=== PATIENT | male | born 1950 | race Caucasian/White ===

== ENCOUNTER 2020-08-23 10:00 | Outpatient (REF) | payer MEDICARE, OTHER, SELFPAY ==
[2020-08-23 13:29] LABS: MANUAL DIFF FLAG NO
[2020-08-23 13:37] LABS: Basophils Absolute Auto 0.1 X10*3/uL (0.0-0.2); Eosinophils Absolute Auto 0.5 X10*3/uL (0.0-0.4); Eosinophils Percent Auto 8.2 % (0-4); Hematocrit 40.4 % (42-52); Hemoglobin 12.6 g/dl (14.0-18.0); Imm Gran Abs Auto 0.02 X10*3/uL (0.00-0.03); Imm Gran Pct Auto 0.3 % (0.0-0.4); Lymphocytes Absolute Auto 0.9 X10*3/uL (1.2-4.9); Mean Corpuscular HGB Conc 31.2 g/dl (31.0-36.0); Mean Corpuscular Hemoglobin 26.8 pg (27.0-33.0); Mean Platelet Volume 11.3 fL (9.4-12.4); Monocytes Absolute Auto 0.6 X10*3/uL (0.1-1.2); Monocytes Percent Auto 8.8 % (2-11); Neutrophils Absolute Auto 4.2 X10*3/uL (2.0-8.3); Neutrophils Percent Auto 66.7 % (45-73); Platelet Count 259 X10*3/uL (160-400); Red Cell Distribution Width 15.3 % (11.0-16.0); White Blood Count 6.2 X10*3/uL (4.8-10.8)
[2020-08-23 14:41] LABS: Alanine Aminotransferase 28 U/L (0-40); Albumin Level 4.3 g/dL (3.5-5.0); Alkaline Phosphatase 74 U/L (39-117); Anion Gap 13 (12-20); Aspartate Amino Transferase 30 U/L (5-37); Bilirubin Total 0.6 mg/dL (0.0-1.0); Blood Urea Nitrogen 23 mg/dL (9-16); Calcium 9.1 mg/dL (8.4-10.2); Carbon Dioxide 28 mmol/L (22-29); Chloride 102 mmol/L (96-108); Cholesterol 167 mg/dL; Estimated Glomerular Filt Rate > 60; Glucose Fasting 114 mg/dL (60-99); HDL Cholesterol 33 mg/dL; LDL Cholesterol Calculated 115 mg/dl; Potassium 4.4 mmol/l (3.3-5.1); Sodium 139 mmol/L (135-145); Total Protein 7.2 g/dL (6.5-8.0); Triglycerides 99 mg/dL
== END 2020-08-23 10:01 | disposition home or self-care (01) ==
LOC: HO.WFDLDS 10:00
PROVIDERS: Visit Provider Internal Medicine Medical Oncology
DX: I10 Essential (primary) hypertension (principal); E11.9 Type 2 diabetes mellitus without complications; C43.9 Malignant melanoma of skin, unspecified
CPT/HCPCS: 36415; 80053; 80061; 85025

== ENCOUNTER 2020-11-28 09:51 | Outpatient (REF) | payer MEDICARE, OTHER, SELFPAY ==
[2020-11-28 10:22] LABS: MANUAL DIFF FLAG NO
[2020-11-28 10:29] LABS: Basophils Percent Auto 0.9 % (0-2); Eosinophils Absolute Auto 0.3 X10*3/uL (0.0-0.4); Eosinophils Percent Auto 5.8 % (0-4); Hemoglobin 11.8 g/dl (14.0-18.0); Imm Gran Abs Auto 0.02 X10*3/uL (0.00-0.03); Imm Gran Pct Auto 0.4 % (0.0-0.4); Lymphocytes Absolute Auto 0.8 X10*3/uL (1.2-4.9); Lymphocytes Percent Auto 16.5 % (20-40); Mean Corpuscular HGB Conc 31.1 g/dl (31.0-36.0); Mean Corpuscular Hemoglobin 26.9 pg (27.0-33.0); Mean Corpuscular Volume 86.8 fL (80-98); Mean Platelet Volume 10.8 fL (9.4-12.4); Monocytes Absolute Auto 0.4 X10*3/uL (0.1-1.2); Neutrophils Absolute Auto 3.1 X10*3/uL (2.0-8.3); Neutrophils Percent Auto 67.4 % (45-73); Platelet Count 256 X10*3/uL (160-400); Red Blood Count 4.38 X10*6/uL (4.60-5.80); Red Cell Distribution Width 14.7 % (11.0-16.0); White Blood Count 4.7 X10*3/uL (4.8-10.8)
[2020-11-28 10:39] LABS: Estimated Average Glucose 148 mg/dL; Hemoglobin A1c % 6.8 %
[2020-11-28 11:17] LABS: Alanine Aminotransferase 29 U/L (0-40); Albumin Level 4.2 g/dL (3.5-5.0); Alkaline Phosphatase 79 U/L (39-117); Anion Gap 13 (12-20); Aspartate Amino Transferase 29 U/L (5-37); Bilirubin Total 0.5 mg/dL (0.0-1.0); Blood Urea Nitrogen 22 mg/dL (9-16); Calcium 9.6 mg/dL (8.4-10.2); Carbon Dioxide 30 mmol/L (22-29); Chloride 103 mmol/L (96-108); Cholesterol 176 mg/dL; Estimated Glomerular Filt Rate > 60; Glucose Random 123 mg/dL (60-115); HDL Cholesterol 37 mg/dL; LDL Cholesterol Calculated 117 mg/dl; Potassium 4.7 mmol/l (3.3-5.1); Sodium 141 mmol/L (135-145); Total Protein 7.1 g/dL (6.5-8.0); Triglycerides 111 mg/dL
[2020-11-28 11:39] LABS: Prostate Specific Antigen 0.21 ng/mL (<0.05-4.0)
== END 2020-11-28 09:52 | disposition home or self-care (01) ==
LOC: HO.LAB 09:51
PROVIDERS: PCP Internal Medicine Medical Oncology; Visit Provider Internal Medicine Medical Oncology
DX: I10 Essential (primary) hypertension (principal); N40.1 Benign prostatic hyperplasia with lower urinary tract symptoms; E11.9 Type 2 diabetes mellitus without complications; I25.10 Atherosclerotic heart disease of native coronary artery without angina pectoris; E78.2 Mixed hyperlipidemia; Z12.5 Encounter for screening for malignant neoplasm of prostate
CPT/HCPCS: 36415; 80053; 80061; 83036; 84153; 85025

== ENCOUNTER 2021-01-24 07:54 | Outpatient (REF) | payer MEDICARE, OTHER, SELFPAY | END 2021-01-24 07:55 | disposition home or self-care (01) | LOC: HO.LAB 07:54 | PROVIDERS: Internal Medicine; Visit Provider Internal Medicine Medical Oncology | DX: Z20.822 Contact with and (suspected) exposure to COVID-19 (principal) | CPT/HCPCS: 36415; C9803; U0003; U0005 ==

== ENCOUNTER 2021-08-14 10:29 | Outpatient (REF) | payer MEDICARE, OTHER, SELFPAY ==
[2021-08-14 11:06] LABS: MANUAL DIFF FLAG NO
[2021-08-14 11:44] LABS: Basophils Absolute Auto 0.1 X10*3/uL (0.0-0.2); Basophils Percent Auto 0.8 % (0-2); Eosinophils Absolute Auto 0.3 X10*3/uL (0.0-0.4); Eosinophils Percent Auto 4.1 % (0-4); Hematocrit 35.6 % (42-52); Hemoglobin 11.1 g/dl (14.0-18.0); Imm Gran Abs Auto 0.03 X10*3/uL (0.00-0.03); Imm Gran Pct Auto 0.5 % (0.0-0.4); Lymphocytes Absolute Auto 0.8 X10*3/uL (1.2-4.9); Lymphocytes Percent Auto 12.4 % (20-40); Mean Corpuscular HGB Conc 31.2 g/dl (31.0-36.0); Mean Corpuscular Hemoglobin 26.2 pg (27.0-33.0); Mean Corpuscular Volume 84.2 fL (80-98); Monocytes Absolute Auto 0.5 X10*3/uL (0.1-1.2); Monocytes Percent Auto 7.8 % (2-11); Neutrophils Absolute Auto 4.5 X10*3/uL (2.0-8.3); Neutrophils Percent Auto 74.4 % (45-73); Platelet Count 268 X10*3/uL (160-400); Red Blood Count 4.23 X10*6/uL (4.60-5.80); Red Cell Distribution Width 15.6 % (11.0-16.0)
[2021-08-14 12:02] LABS: Estimated Average Glucose 157 mg/dL; Hemoglobin A1c % 7.1 %
[2021-08-14 12:07] LABS: Alanine Aminotransferase 39 U/L (0-40); Alkaline Phosphatase 68 U/L (39-117); Anion Gap 14 (12-20); Aspartate Amino Transferase 39 U/L (5-37); Bilirubin Total 0.8 mg/dL (0.0-1.0); Blood Urea Nitrogen 28 mg/dL (9-16); Calcium 9.4 mg/dL (8.4-10.2); Carbon Dioxide 25 mmol/L (22-29); Chloride 104 mmol/L (96-108); Cholesterol 164 mg/dL; Estimated Glomerular Filt Rate 53; Glucose Fasting 139 mg/dL (60-99); HDL Cholesterol 37 mg/dL; LDL Cholesterol Calculated 107 mg/dl; Potassium 4.4 mmol/L (3.3-5.1); Sodium 139 mmol/L (135-145); Total Protein 6.9 g/dL (6.5-8.0); Triglycerides 104 mg/dL
[2021-08-14 12:12] LABS: Creatinine Urine 67.08 mg/dL
== END 2021-08-14 10:30 | disposition home or self-care (01) ==
LOC: HO.LAB 10:29
PROVIDERS: PCP Internal Medicine Medical Oncology; Visit Provider Internal Medicine Medical Oncology
DX: I10 Essential (primary) hypertension (principal); E78.2 Mixed hyperlipidemia; E11.9 Type 2 diabetes mellitus without complications; I48.20 Chronic atrial fibrillation, unspecified; N40.1 Benign prostatic hyperplasia with lower urinary tract symptoms; Z12.5 Encounter for screening for malignant neoplasm of prostate
CPT/HCPCS: 36415; 80053; 80061; 82043; 83036; 84153; 85025

== ENCOUNTER 2021-12-25 11:23 | Outpatient (REF) | payer MEDICARE, OTHER, SELFPAY ==
--- NOTE | ~2021-12-25 | XR_ITS ---
EXAMINATION: XR ELBOW, LEFT CLINICAL INFORMATION: Left elbow pain. COMPARISON: None TECHNIQUE: AP, lateral, and oblique views of the left elbow. FINDINGS: There is chondrocalcinosis. There is subchondral cystic change in the capitellum. There are marginal osteophytes about the radiocapitellar joint. There is a joint effusion. The surrounding bone is normal. Arterial calcification noted. XR/XR elbow LT 2V IMPRESSION: Chondrocalcinosis and osteoarthritis with a joint effusion. 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
== END 2021-12-25 11:24 | disposition home or self-care (01) ==
LOC: HO.XRAY 11:23
PROVIDERS: PCP Internal Medicine Medical Oncology; Visit Provider Internal Medicine Medical Oncology
DX: M25.522 Pain in left elbow (principal)
CPT/HCPCS: 73070

== ENCOUNTER 2022-08-15 09:22 | Outpatient (REF) | payer MEDICARE, OTHER, SELFPAY ==
[2022-08-15 09:46] LABS: MANUAL DIFF FLAG NO
[2022-08-15 10:19] LABS: Basophils Absolute Auto 0.1 X10*3/uL (0.0-0.2); Basophils Percent Auto 1.6 % (0-2); Eosinophils Absolute Auto 0.2 X10*3/uL (0.0-0.4); Eosinophils Percent Auto 3.7 % (0-4); Hematocrit 39.1 % (42.0-52.0); Hemoglobin 12.7 g/dl (14.0-18.0); Imm Gran Abs Auto 0.03 X10*3/uL (0.00-0.03); Imm Gran Pct Auto 0.6 % (0.0-0.4); Lymphocytes Absolute Auto 1.2 X10*3/uL (1.2-4.9); Lymphocytes Percent Auto 22.6 % (20-40); Mean Corpuscular HGB Conc 32.5 g/dl (31.0-36.0); Mean Corpuscular Volume 86.3 fL (80.0-98.0); Mean Platelet Volume 10.9 fL (9.4-12.4); Monocytes Absolute Auto 0.5 X10*3/uL (0.1-1.2); Monocytes Percent Auto 8.8 % (2-11); Neutrophils Absolute Auto 3.2 x10*3/uL (2.0-8.3); Neutrophils Percent Auto 62.7 % (45-73); Platelet Count 314 X10*3/uL (160-400); Red Blood Count 4.53 X10*6/uL (4.60-5.80); Red Cell Distribution Width 14.2 % (11.0-16.0); White Blood Count 5.1 X10*3/uL (4.8-10.8)
[2022-08-15 10:29] LABS: Estimated Average Glucose 146 mg/dL; Hemoglobin A1c % 6.7 %
[2022-08-15 10:40] LABS: Alanine Aminotransferase 29 U/L (0-40); Albumin Level 4.4 g/dL (3.5-5.0); Alkaline Phosphatase 75 U/L (39-117); Anion Gap 19 (12-20); Aspartate Amino Transferase 35 U/L (5-37); Bilirubin Total 0.3 mg/dL (0.0-1.0); Blood Urea Nitrogen 40 mg/dL (9-16); Calcium 9.7 mg/dL (8.4-10.2); Carbon Dioxide 26 mmol/L (22-29); Chloride 97 mmol/L (96-108); Cholesterol 184 mg/dL; Estimated Glomerular Filt Rate 47; Glucose Random 100 mg/dL (60-115); HDL Cholesterol 33 mg/dL; LDL Cholesterol Calculated 125 mg/dl; Potassium 4.1 mmol/L (3.3-5.1); Sodium 138 mmol/L (135-145); Total Protein 7.6 g/dL (6.5-8.0); Triglycerides 132 mg/dL
[2022-08-15 11:05] LABS: Prostate Specific Antigen 0.14 ng/mL (<0.05-4.0)
[2022-08-15 11:37] LABS: Creatinine Urine 46.57 mg/dL
== END 2022-08-15 09:23 | disposition home or self-care (01) ==
LOC: HO.LAB 09:22
PROVIDERS: Visit Provider Internal Medicine Medical Oncology
DX: E11.9 Type 2 diabetes mellitus without complications (principal); I10 Essential (primary) hypertension; N40.1 Benign prostatic hyperplasia with lower urinary tract symptoms; Z12.5 Encounter for screening for malignant neoplasm of prostate
CPT/HCPCS: 36415; 80053; 80061; 82043; 83036; 84153; 85025

== ENCOUNTER 2022-11-15 08:36 | Outpatient (REF) | payer MEDICARE, OTHER, SELFPAY ==
[2022-11-15 08:52] LABS: MANUAL DIFF FLAG NO
[2022-11-15 09:29] LABS: Basophils Absolute Auto 0.1 X10*3/uL (0.0-0.2); Eosinophils Absolute Auto 0.3 X10*3/uL (0.0-0.4); Eosinophils Percent Auto 5.4 % (0-4); Hematocrit 34.3 % (42.0-52.0); Imm Gran Abs Auto 0.01 X10*3/uL (0.00-0.03); Imm Gran Pct Auto 0.2 % (0.0-0.4); Lymphocytes Absolute Auto 0.9 X10*3/uL (1.2-4.9); Lymphocytes Percent Auto 16.4 % (20-40); Mean Corpuscular HGB Conc 32.1 g/dl (31.0-36.0); Mean Corpuscular Hemoglobin 27.7 pg (27.0-33.0); Mean Corpuscular Volume 86.4 fL (80.0-98.0); Mean Platelet Volume 10.7 fL (9.4-12.4); Monocytes Absolute Auto 0.5 X10*3/uL (0.1-1.2); Monocytes Percent Auto 9.5 % (2-11); Neutrophils Absolute Auto 3.5 x10*3/uL (2.0-8.3); Neutrophils Percent Auto 67.5 % (45-73); Platelet Count 285 X10*3/uL (160-400); Red Blood Count 3.97 X10*6/uL (4.60-5.80); Red Cell Distribution Width 14.1 % (11.0-16.0); White Blood Count 5.2 X10*3/uL (4.8-10.8)
[2022-11-15 09:39] LABS: Estimated Average Glucose 143 mg/dL; Hemoglobin A1c % 6.6 %
[2022-11-15 10:06] LABS: Alanine Aminotransferase 23 U/L (0-40); Albumin Level 4.2 g/dL (3.5-5.0); Alkaline Phosphatase 73 U/L (39-117); Anion Gap 14 (12-20); Aspartate Amino Transferase 31 U/L (5-37); Bilirubin Total 0.4 mg/dL (0.0-1.0); Blood Urea Nitrogen 36 mg/dL (9-16); Calcium 9.5 mg/dL (8.4-10.2); Carbon Dioxide 26 mmol/L (22-29); Chloride 103 mmol/L (96-108); Cholesterol 175 mg/dL; Estimated Glomerular Filt Rate 41; Glucose Fasting 119 mg/dL (60-99); HDL Cholesterol 31 mg/dL; LDL Cholesterol Calculated 118 mg/dl; Potassium 4.2 mmol/L (3.3-5.1); Sodium 139 mmol/L (135-145); Total Protein 7.4 g/dL (6.5-8.0); Triglycerides 132 mg/dL
[2022-11-15 12:22] LABS: Microalbum/Creatinine Ratio Ur 14.1 ug/mg cr
== END 2022-11-15 08:37 | disposition home or self-care (01) ==
LOC: HO.LAB 08:36
PROVIDERS: PCP Internal Medicine Medical Oncology; Visit Provider Internal Medicine Medical Oncology
DX: E11.9 Type 2 diabetes mellitus without complications (principal); I10 Essential (primary) hypertension; I48.20 Chronic atrial fibrillation, unspecified; E78.2 Mixed hyperlipidemia
CPT/HCPCS: 36415; 80053; 80061; 82043; 83036; 85025

== ENCOUNTER 2022-12-10 15:06 | Outpatient (REF) | payer MEDICARE, OTHER, SELFPAY ==
--- NOTE | ~2022-12-10 | US_ITS ---
EXAMINATION: US RETROPERITONEAL COMPLETE (RENAL) CLINICAL INFORMATION: Abnormal finding of blood chemistry. Hydronephrosis. Elevated BUN. COMPARISON: CT abdomen and pelvis 06/03/2017. Nuclear medicine renal scan 02/20/2017. TECHNIQUE: Real-time imaging of the kidneys and bladder. FINDINGS: RIGHT KIDNEY: 14.1 x 6.7 x 8.9 cm (SAG x AP x TRV). The kidney is normal in size, contour, and echogenicity. Renal cortical thickness is normal. No renal calculi or focal parenchymal lesions. Moderate to severe hydroureteronephrosis, the visualized proximal ureter measures up to 1.6 cm in diameter. LEFT KIDNEY: 15.0 x 6.2 x 7.9 cm (SAG x AP x TRV). The kidney is normal in size, contour, and echogenicity. Renal cortical thickness is normal. No renal calculi or focal parenchymal lesions. Moderate to severe hydroureteronephrosis, the visualized proximal ureter measures 2.5 cm in diameter. BLADDER: Well distended with thickened and trabeculated wall. Bilateral ureteral jets are demonstrated. Prevoid bladder volume is 1075.7 mL. Postvoid bladder volume is 1041.8 mL. Prostate gland not visualized. US/US retroperitoneal comp IMPRESSION: Chronic moderate to severe bilateral hydroureteronephrosis. Remote CT abdominopelvic images and nuclear medicine renal functional studies are noted from 2017. Recommend interval correlation with new functional imaging to assess residual renal function. Bilateral ureteral jets are noted. Trabeculated thickened urinary bladder, also noted on CT from 2017, nonspecific could be associated with neurogenic bladder. If indicated, consider correlation with urinalysis.
[2022-12-10 16:38] LABS: Blood Urea Nitrogen 34 mg/dL (9-16); Estimated Glomerular Filt Rate 37
== END 2022-12-10 15:07 | disposition home or self-care (01) ==
LOC: HO.US 15:06
PROVIDERS: PCP Internal Medicine Medical Oncology; Visit Provider Internal Medicine Medical Oncology
DX: E11.9 Type 2 diabetes mellitus without complications (principal); N18.30 Chronic kidney disease, stage 3 unspecified; R79.9 Abnormal finding of blood chemistry, unspecified
CPT/HCPCS: 36415; 76770; 82565; 84520

== ENCOUNTER 2023-03-06 09:36 | Outpatient (REF) | payer MEDICARE, OTHER, SELFPAY ==
[2023-03-06 09:56] LABS: MANUAL DIFF FLAG NO
[2023-03-06 09:59] LABS: Basophils Absolute Auto 0.1 X10*3/uL (0.0-0.2); Eosinophils Absolute Auto 0.3 X10*3/uL (0.0-0.4); Eosinophils Percent Auto 4.7 % (0-4); Hematocrit 36.5 % (42.0-52.0); Hemoglobin 11.5 g/dl (14.0-18.0); Imm Gran Abs Auto 0.02 X10*3/uL (0.00-0.03); Imm Gran Pct Auto 0.3 % (0.0-0.4); Lymphocytes Absolute Auto 0.8 X10*3/uL (1.2-4.9); Lymphocytes Percent Auto 13.4 % (20-40); Mean Corpuscular HGB Conc 31.5 g/dl (31.0-36.0); Mean Corpuscular Hemoglobin 26.9 pg (27.0-33.0); Mean Corpuscular Volume 85.5 fL (80.0-98.0); Monocytes Absolute Auto 0.5 X10*3/uL (0.1-1.2); Monocytes Percent Auto 8.4 % (2-11); Neutrophils Absolute Auto 4.1 x10*3/uL (2.0-8.3); Neutrophils Percent Auto 72.2 % (45-73); Platelet Count 264 X10*3/uL (160-400); Red Blood Count 4.27 X10*6/uL (4.60-5.80); Red Cell Distribution Width 14.5 % (11.0-16.0); White Blood Count 5.7 X10*3/uL (4.8-10.8)
[2023-03-06 11:26] LABS: Alanine Aminotransferase 17 U/L (0-40); Albumin Level 4.2 g/dL (3.5-5.0); Alkaline Phosphatase 82 U/L (39-117); Anion Gap 16 (12-20); Aspartate Amino Transferase 21 U/L (5-37); Bilirubin Total 0.6 mg/dL (0.0-1.0); Blood Urea Nitrogen 27 mg/dL (9-16); Carbon Dioxide 25 mmol/L (22-29); Chloride 103 mmol/L (96-108); Cholesterol 186 mg/dL; Estimated Glomerular Filt Rate 42; Glucose Random 121 mg/dL (60-115); HDL Cholesterol 32 mg/dL; LDL Cholesterol Calculated 132 mg/dl; Magnesium 1.7 mg/dL (1.6-2.6); Potassium 4.9 mmol/L (3.3-5.1); Sodium 139 mmol/L (135-145); Total Protein 7.1 g/dL (6.5-8.0); Triglycerides 110 mg/dL
[2023-03-06 11:28] LABS: Prostate Specific Antigen 0.24 ng/mL (<0.05-4.0)
== END 2023-03-06 09:37 | disposition home or self-care (01) ==
LOC: HO.LAB 09:36
PROVIDERS: PCP Internal Medicine Medical Oncology; Visit Provider Internal Medicine Medical Oncology
DX: Z12.5 Encounter for screening for malignant neoplasm of prostate (principal); I25.10 Atherosclerotic heart disease of native coronary artery without angina pectoris; R79.0 Abnormal level of blood mineral; E11.9 Type 2 diabetes mellitus without complications; N40.1 Benign prostatic hyperplasia with lower urinary tract symptoms; E78.2 Mixed hyperlipidemia
CPT/HCPCS: 36415; 80053; 80061; 83735; 84153; 85025

== ENCOUNTER 2023-06-26 10:31 | Outpatient (REF) | payer MEDICARE, OTHER, SELFPAY ==
[2023-06-26 11:53] LABS: Alanine Aminotransferase 26 U/L (0-40); Albumin Level 4.1 g/dL (3.5-5.0); Alkaline Phosphatase 70 U/L (39-117); Anion Gap 12 (12-20); Aspartate Amino Transferase 32 U/L (5-37); Bilirubin Total 0.5 mg/dL (0.0-1.0); Blood Urea Nitrogen 40 mg/dL (9-16); Calcium 10.1 mg/dL (8.4-10.2); Carbon Dioxide 25 mmol/L (22-29); Chloride 106 mmol/L (96-108); Cholesterol 178 mg/dL; Estimated Glomerular Filt Rate 41; Glucose Fasting 121 mg/dL (60-99); HDL Cholesterol 31 mg/dL; LDL Cholesterol Calculated 125 mg/dl; Potassium 4.3 mmol/L (3.3-5.1); Sodium 139 mmol/L (135-145); Total Protein 7.8 g/dL (6.5-8.0); Triglycerides 111 mg/dL
[2023-06-26 12:10] LABS: Prostate Specific Antigen 0.21 ng/mL (<0.05-4.0)
[2023-06-26 12:13] LABS: Estimated Average Glucose 140 mg/dL; Hemoglobin A1c % 6.5 %
== END 2023-06-26 10:32 | disposition home or self-care (01) ==
LOC: HO.LAB 10:31
PROVIDERS: PCP Internal Medicine Medical Oncology; Visit Provider Internal Medicine Medical Oncology
DX: Z12.5 Encounter for screening for malignant neoplasm of prostate (principal); E11.9 Type 2 diabetes mellitus without complications; I48.20 Chronic atrial fibrillation, unspecified; N40.1 Benign prostatic hyperplasia with lower urinary tract symptoms; E78.2 Mixed hyperlipidemia
CPT/HCPCS: 36415; 80053; 80061; 83036; 84153

== ENCOUNTER 2023-09-25 09:52 | Outpatient (REF) | payer MEDICARE, OTHER, SELFPAY ==
[2023-09-25 10:15] LABS: MANUAL DIFF FLAG NO
[2023-09-25 10:53] LABS: Basophils Absolute Auto 0.1 X10*3/uL (0.0-0.2); Basophils Percent Auto 1.2 % (0-2); Eosinophils Absolute Auto 0.3 X10*3/uL (0.0-0.4); Eosinophils Percent Auto 6.3 % (0-4); Hematocrit 35.9 % (42.0-52.0); Hemoglobin 11.4 g/dl (14.0-18.0); Imm Gran Abs Auto 0.02 X10*3/uL (0.00-0.03); Imm Gran Pct Auto 0.4 % (0.0-0.4); Lymphocytes Absolute Auto 0.8 X10*3/uL (1.2-4.9); Lymphocytes Percent Auto 16.5 % (20-40); Mean Corpuscular HGB Conc 31.8 g/dl (31.0-36.0); Mean Corpuscular Hemoglobin 27.2 pg (27.0-33.0); Mean Corpuscular Volume 85.7 fL (80.0-98.0); Mean Platelet Volume 11.5 fL (9.4-12.4); Monocytes Absolute Auto 0.5 X10*3/uL (0.1-1.2); Monocytes Percent Auto 10.1 % (2-11); Neutrophils Absolute Auto 3.3 x10*3/uL (2.0-8.3); Neutrophils Percent Auto 65.5 % (45-73); Platelet Count 263 X10*3/uL (160-400); Red Blood Count 4.19 X10*6/uL (4.60-5.80)
[2023-09-25 10:55] LABS: Estimated Average Glucose 137 mg/dL; Hemoglobin A1c % 6.4 % (<6.0)
[2023-09-25 11:19] LABS: Alanine Aminotransferase 26 U/L (0-40); Albumin Level 4.2 g/dL (3.5-5.0); Alkaline Phosphatase 81 U/L (39-117); Anion Gap 12 (12-20); Aspartate Amino Transferase 36 U/L (5-37); Bilirubin Total 0.6 mg/dL (0.0-1.0); Blood Urea Nitrogen 30 mg/dL (9-16); Calcium 9.9 mg/dL (8.4-10.2); Carbon Dioxide 27 mmol/L (22-29); Chloride 103 mmol/L (96-108); Cholesterol 170 mg/dL (<200); Estimated Glomerular Filt Rate 47; Glucose Fasting 125 mg/dL (60-99); HDL Cholesterol 29 mg/dL (>40); LDL Cholesterol Calculated 118 mg/dL (<100); Potassium 4.4 mmol/L (3.3-5.1); Sodium 138 mmol/L (135-145); Total Protein 7.9 g/dL (6.5-8.0); Triglycerides 116 mg/dL (<150)
[2023-09-25 12:44] LABS: Creatinine Urine 53.45 mg/dL; Microalbum/Creatinine Ratio Ur 119.7 ug/mg cr (<30)
== END 2023-09-25 09:53 | disposition home or self-care (01) ==
LOC: HO.LAB 09:52
PROVIDERS: PCP Internal Medicine Medical Oncology; Visit Provider Internal Medicine Medical Oncology
DX: E11.9 Type 2 diabetes mellitus without complications (principal); E66.9 Obesity, unspecified; I10 Essential (primary) hypertension
CPT/HCPCS: 36415; 80053; 80061; 82043; 82570; 83036; 85025

== ENCOUNTER 2023-11-18 09:37 | Outpatient (REF) | payer MEDICARE, OTHER, SELFPAY ==
[2023-11-18 10:01] LABS: MANUAL DIFF FLAG NO
[2023-11-18 10:19] LABS: Basophils Absolute Auto 0.1 X10*3/uL (0.0-0.2); Eosinophils Absolute Auto 0.3 X10*3/uL (0.0-0.4); Eosinophils Percent Auto 5.3 % (0-4); Hematocrit 34.9 % (42.0-52.0); Imm Gran Abs Auto 0.01 X10*3/uL (0.00-0.03); Imm Gran Pct Auto 0.2 % (0.0-0.4); Lymphocytes Absolute Auto 0.8 X10*3/uL (1.2-4.9); Mean Corpuscular HGB Conc 31.5 g/dl (31.0-36.0); Mean Corpuscular Hemoglobin 26.3 pg (27.0-33.0); Mean Corpuscular Volume 83.5 fL (80.0-98.0); Mean Platelet Volume 10.6 fL (9.4-12.4); Monocytes Absolute Auto 0.5 X10*3/uL (0.1-1.2); Monocytes Percent Auto 10.7 % (2-11); Neutrophils Absolute Auto 3.4 x10*3/uL (2.0-8.3); Neutrophils Percent Auto 67.8 % (45-73); Platelet Count 243 X10*3/uL (160-400); Red Blood Count 4.18 X10*6/uL (4.60-5.80); Red Cell Distribution Width 15.5 % (11.0-16.0); White Blood Count 5.1 X10*3/uL (4.8-10.8)
[2023-11-18 11:16] LABS: Estimated Average Glucose 148 mg/dL; Hemoglobin A1C 149.7394 umol/L; Hemoglobin A1c % 6.8 % (<6.0)
[2023-11-18 11:18] LABS: Alanine Aminotransferase 23 U/L (0-40); Alkaline Phosphatase 82 U/L (39-117); Anion Gap 15 (12-20); Aspartate Amino Transferase 32 U/L (5-37); Bilirubin Total 0.4 mg/dL (0.0-1.0); Blood Urea Nitrogen 44 mg/dL (9-16); Calcium 9.8 mg/dL (8.4-10.2); Carbon Dioxide 27 mmol/L (22-29); Chloride 102 mmol/L (96-108); Estimated Glomerular Filt Rate 41; Glucose Random 170 mg/dL (60-115); Potassium 3.9 mmol/L (3.3-5.1); Sodium 140 mmol/L (135-145)
== END 2023-11-18 09:38 | disposition home or self-care (01) ==
LOC: HO.LAB 09:37
PROVIDERS: PCP Internal Medicine Medical Oncology; Visit Provider Internal Medicine Medical Oncology
DX: E11.9 Type 2 diabetes mellitus without complications (principal); E66.9 Obesity, unspecified
CPT/HCPCS: 36415; 80053; 83036; 85025

== ENCOUNTER 2024-03-02 09:58 | Outpatient (REF) | payer MEDICARE, OTHER, SELFPAY ==
[2024-03-02 11:28] LABS: MANUAL DIFF FLAG NO
[2024-03-02 11:54] LABS: Basophils Percent Auto 0.8 % (0-2); Eosinophils Absolute Auto 0.2 X10*3/uL (0.0-0.4); Eosinophils Percent Auto 4.6 % (0-4); Hematocrit 33.1 % (42.0-52.0); Hemoglobin 10.5 g/dl (14.0-18.0); Imm Gran Abs Auto 0.02 X10*3/uL (0.00-0.03); Imm Gran Pct Auto 0.4 % (0.0-0.4); Lymphocytes Absolute Auto 0.7 X10*3/uL (1.2-4.9); Lymphocytes Percent Auto 13.7 % (20-40); Mean Corpuscular HGB Conc 31.7 g/dl (31.0-36.0); Mean Corpuscular Hemoglobin 26.9 pg (27.0-33.0); Mean Corpuscular Volume 84.7 fL (80.0-98.0); Mean Platelet Volume 11.3 fL (9.4-12.4); Monocytes Absolute Auto 0.5 X10*3/uL (0.1-1.2); Monocytes Percent Auto 9.9 % (2-11); Neutrophils Absolute Auto 3.6 x10*3/uL (2.0-8.3); Neutrophils Percent Auto 70.6 % (45-73); Platelet Count 286 X10*3/uL (160-400); Red Blood Count 3.91 X10*6/uL (4.60-5.80); Red Cell Distribution Width 15.4 % (11.0-16.0); White Blood Count 5.1 X10*3/uL (4.8-10.8)
[2024-03-02 13:26] LABS: Estimated Average Glucose 157 mg/dL; Hemoglobin A1c % 7.1 % (<6.0)
[2024-03-02 13:53] LABS: Alanine Aminotransferase 22 U/L (0-40); Alkaline Phosphatase 98 U/L (39-117); Anion Gap 14 (12-20); Aspartate Amino Transferase 31 U/L (5-37); Bilirubin Total 0.6 mg/dL (0.0-1.0); Blood Urea Nitrogen 30 mg/dL (9-16); Calcium 9.7 mg/dL (8.4-10.2); Carbon Dioxide 26 mmol/L (22-29); Chloride 102 mmol/L (96-108); Cholesterol 181 mg/dL (<200); Estimated Glomerular Filt Rate 39; Glucose Fasting 132 mg/dL (60-99); HDL Cholesterol 32 mg/dL (>40); LDL Cholesterol Calculated 125 mg/dL (<100); Potassium 4.2 mmol/L (3.3-5.1); Sodium 138 mmol/L (135-145); Total Protein 7.8 g/dL (6.5-8.0); Triglycerides 120 mg/dL (<150)
[2024-03-02 14:14] LABS: Creatinine Urine 47.62 mg/dL; Microalbum/Creatinine Ratio Ur 90.2 ug/mg cr (<30)
== END 2024-03-02 09:59 | disposition home or self-care (01) ==
LOC: HO.WFDLDS 09:58
PROVIDERS: Visit Provider Internal Medicine Medical Oncology
DX: E11.9 Type 2 diabetes mellitus without complications (principal); I10 Essential (primary) hypertension; C43.9 Malignant melanoma of skin, unspecified; E78.2 Mixed hyperlipidemia
CPT/HCPCS: 36415; 80053; 80061; 82043; 82570; 83036; 85025

== ENCOUNTER 2024-03-31 10:47 | Outpatient (REF) | payer MEDICARE, OTHER, SELFPAY ==
[2024-03-31 15:04] LABS: Free T4 (Free Thyroxine) 0.86 ng/dL (0.71-1.85); Thyroid Stimulating Hormone 2.52 uIU/mL (0.32-4.0)
[2024-03-31 15:06] LABS: Prostate Specific Antigen 0.21 ng/mL (<0.05-4.0)
[2024-03-31 15:18] LABS: B Type Natriuretic Peptide 306 pg/mL (<100)
== END 2024-03-31 10:48 | disposition home or self-care (01) ==
LOC: HO.WFDLDS 10:47
PROVIDERS: Visit Provider Internal Medicine Medical Oncology
DX: Z00.00 Encounter for general adult medical examination without abnormal findings (principal); E11.9 Type 2 diabetes mellitus without complications; I48.20 Chronic atrial fibrillation, unspecified; N40.1 Benign prostatic hyperplasia with lower urinary tract symptoms; E78.2 Mixed hyperlipidemia; E66.9 Obesity, unspecified; Z12.5 Encounter for screening for malignant neoplasm of prostate
CPT/HCPCS: 36415; 83880; 84153; 84439; 84443

== ENCOUNTER 2024-05-17 15:33 | Outpatient (REF) | payer MEDICARE, OTHER, SELFPAY ==
--- NOTE | ~2024-05-17 | XR_ITS ---
EXAMINATION: XR ANKLE, RIGHT CLINICAL INFORMATION: Ankle pain. COMPARISON: Right foot January 14, 2017 TECHNIQUE: Four views of the right ankle. FINDINGS: Severe advanced bony changes of the ankle, midfoot and hindfoot consistent with Charcot joint.There are erosions of the articular surface of the plafond of the tibia and the medial malleolus. There is widening of the ankle joint with lateral subluxation and lateral tilt of the talus. There is loss of bone, bone destruction and fragmentation of the neck of the talus, navicular bone and the cuneiforms and cuboid with subluxation of the bone fragments relative to the talus. There is also similar subchondral lucencies and bone fragmentation of the proximal shaft of the metatarsals at the metatarsal tarsal joints. Partial destruction and lucency of the anterior calcaneus with fracture through the anterior plantar surface of the calcaneus. Bone erosion and fragmentation of the anterior superior calcaneus impacting the posterior surface of the talus with fragmentation. Chronic spurring of the calcaneus both the posterior calcaneus on the plantar surface of the calcaneus. Small adjacent calcifications around the plantar spur similar prior study January 14, 2017. XR/XR ankle RT min 3V IMPRESSION: 1. Severe Charcot joint of the ankle, midfoot and hindfoot. There is extensive bone fragmentation . 2. Partial destruction of the anterior calcaneus with fracture through the anterior plantar surface of the calcaneus.
== END 2024-05-17 15:34 | disposition home or self-care (01) ==
LOC: HO.XRAY 15:33
PROVIDERS: PCP Internal Medicine Medical Oncology; Visit Provider Internal Medicine Medical Oncology
DX: M25.571 Pain in right ankle and joints of right foot (principal); M25.471 Effusion, right ankle
CPT/HCPCS: 73610

== ENCOUNTER 2024-05-21 10:20 | Inpatient (IN) | payer MEDICARE, OTHER, SELFPAY ==
[2024-05-21] VITALS (7 sets, daily range): BP systolic 114–184; BP diastolic 60–86; PULSE 65–68; RESP 16–20; TEMP 36.2–36.9; O2SAT 98–100; BMI 36.6
--- NOTE | ~2024-05-21 | XR_ITS ---
EXAMINATION: XR ankle RT min 3V, XR foot RT 2V CLINICAL INFORMATION: Reason for Exam ankle pain COMPARISON: Ankle radiographs 05/17/2024 and foot radiographs 01/14/2017 TECHNIQUE: AP, lateral, and oblique views of the foot and ankle FINDINGS: Findings suggestive of Charcot arthropathy similar to recent prior significantly progressed from remote prior with dislocation of the tibia and fibula with respect to the talar dome and talus with respect to the calcaneus with resorption of the bones of the mid foot and proximal metatarsals. Marked soft tissue swelling. No acute fracture. Atherosclerotic vascular calcification. XR/XR foot RT 2V Pes planus. IMPRESSION: Findings suggestive of Charcot arthropathy similar to recent prior significantly progressed from remote prior with dislocation of the tibia and fibula with respect to the talar dome and talus with respect to the calcaneus with resorption of the mid foot bones and proximal metatarsals. Marked soft tissue swelling.
--- NOTE | ~2024-05-21 | XR_ITS ---
EXAMINATION: XR ankle RT min 3V, XR foot RT 2V CLINICAL INFORMATION: Reason for Exam ankle pain COMPARISON: Ankle radiographs 05/17/2024 and foot radiographs 01/14/2017 TECHNIQUE: AP, lateral, and oblique views of the foot and ankle FINDINGS: Findings suggestive of Charcot arthropathy similar to recent prior significantly progressed from remote prior with dislocation of the tibia and fibula with respect to the talar dome and talus with respect to the calcaneus with resorption of the bones of the mid foot and proximal metatarsals. Marked soft tissue swelling. No acute fracture. Atherosclerotic vascular calcification. XR/XR ankle RT min 3V Pes planus. IMPRESSION: Findings suggestive of Charcot arthropathy similar to recent prior significantly progressed from remote prior with dislocation of the tibia and fibula with respect to the talar dome and talus with respect to the calcaneus with resorption of the mid foot bones and proximal metatarsals. Marked soft tissue swelling.
--- NOTE | 2024-05-21 10:44 | PC.NURSE ---
patient a&ox3, pt states he has no pain while sitting but if he tries to ambulate he feels he has 10/10 pain and describes the pain as a hot poker stuck in his ankle area. pt RLE edematous, pt states he has seen ortho, he has diabetic shoe with a 3/4 inch lift because his rt leg has become shorter than left. pt states he has never had a neuro consult.
--- NOTE | 2024-05-21 11:59 | ED.GENADULT ---
HPI - General Adult General Chief complaint: Extremity Injury, Lower Stated complaint: Foot pain - sent by PCP Time Seen by Provider: 05/21/24 11:04 Source: patient Mode of arrival: ambulatory Limitations: no limitations History of Present Illness ED Provider: Hector Restrepo PA-C HPI narrative: 73-year-old male with history of diabetes presents to ED for chronic ankle foot pain/ deformity that has worsened past week. patient states months of right ankle foot weakness with pain. Patient states every time he stood up his ankle would give out and role. Patient states the past week worsening erythema of ankle and foot. Patient has been evaluated by orthopedic surgeon at [facility] multiple times. Primary care sent patient to the ED to be evaluated. Patient denies any recent trauma. Patient denies any recent surgery. Patient denies any chest pain or shortness of breath. Patient denies any pleurisy. Related Data Home Medications ?Medication ?Instructions ?Recorded ?Confirmed amino ac-vit [id number] 1 tab PO BID 05/21/24 05/21/24 tablet aspirin 81 mg tablet,delayed 81 mg PO DAILY 05/21/24 05/21/24 release bumetanide 1 mg tablet 2 mg PO DAILY 05/21/24 05/21/24 docusate sodium 100 mg capsule 100 mg PO BEDTIME 05/21/24 05/21/24 esomeprazole magnesium 20 mg 20 mg PO DAILY@0630 05/21/24 05/21/24 capsule,delayed release gemfibrozil 600 mg tablet 600 mg PO BID 05/21/24 05/21/24 metoprolol tartrate 50 mg tablet 50 mg PO BID 05/21/24 05/21/24 multivitamin 1 tab PO DAILY 05/21/24 05/21/24 sitagliptin phosphate 50 1 tab PO BID 05/21/24 05/21/24 mg-metformin 500 mg tablet (Janumejuhi) torsemide 20 mg tablet 80 mg PO DAILY 05/21/24 05/21/24 warfarin 5 mg tablet 5 mg PO DAILY@1800 05/21/24 05/21/24 Allergies Allergy/AdvReac Type Severity Reaction Status Date / Time Iodinated Contrast Media Allergy Unknown SEVERE Verified 05/21/24 18:57 [IV CONTRAST] HTN,REDNESS latex [LATEX] Allergy Unknown RASH Verified 05/21/24 18:57 ivp dye Allergy Unknown Hypertensio Uncoded 05/21/24 10:30 n latex Allergy Unknown Rash Uncoded 05/21/24 10:30 Review of Systems Review of Systems: RIght foot/ankle chronic pain, defomirty, Yes all other systems are reviewed and are negative [facility] Past Medical History Medical History (Updated 05/21/24 @ 19:41 by KATE Shelby) Hypertension Cataract (lens) fragments in eye following cataract surgery, bilateral Surgical absence of teeth History of cardioversion Peripheral edema Atrial fibrillation Stomach ulcer CVA (cerebral vascular accident) H/O coronary angiogram Squamous cell carcinoma, arm Basal cell carcinoma (BCC) Hepatitis B Peritonitis Melanoma Complete heart block Cardiac arrest Pacemaker Diabetes Surgical History (Updated 05/21/24 @ 18:50 by Kat Sauceda RN) H/O cardiac radiofrequency ablation S/P cardiac cath S/P triple vessel bypass Aortic valve replaced History of carpal tunnel surgery S/P appendectomy S/P tonsillectomy Social History Social History Household Members: Spouse Housing: House Do you presently have visiting nurse or other home services: No Patient Tobacco Use Status: Never used Tobacco Smoked in Last 30 Days: No e-Cigarette/Vaping Use: Never Used Use of substances other than those prescribed or required for medical reasons: No Currently Displaying Signs/Symptoms of Drug Intoxication Withdrawal: No Any prior treatment program specific to substance use: No Have you been hit, kicked, punched, or otherwise hurt by someone within the past year? If so, by whom?: No Do you feel safe in your current relationship?: Yes Is there a partner from a previous relationship who is making you feel unsafe now?: No Are you made to feel afraid or neglected: No Advance Directives: No Advance Directives Information Provided: Yes Advance Directives Date on File: 08/23/20 Do you have a plan to hurt others: No Plan Recently lost weight without trying: No Nutrition Risks: No Nutritional Risk Poor oral hygiene: No Physical Exam ED Vital Signs: Vital Signs - 24 hr 05/21/24 10:28 05/21/24 13:26 05/21/24 17:07 Temperature 98.4 F 97.8 F 97.1 F Pulse Rate 67 68 67 Respiratory Rate 16 18 18 Blood Pressure 114/60 150/77 H 184/86 H Pulse Oximetry 98 99 100 Oxygen Delivery Method Room Air Room Air Room Air 05/21/24 17:14 Temperature 97.3 F Pulse Rate 67 Respiratory Rate 18 Blood Pressure Pulse Oximetry 100 Oxygen Delivery Method Room Air BMI result Body Mass Index 36.6 Const General: cooperative, healthy appearing, comfortable, no acute distress, well developed, alert, awake and Physically active Orientation/consciousness: patient oriented x3 [facility] Head: Yes normal to inspection, Yes No palpable skull fracture present, Yes normocephalic and Yes atraumatic Eyes General: appearance normal, both eyes and all related structures Neck Neck: Yes normal visual inspection, Yes full ROM, Yes no lymphadenopathy, Yes no meningeal signs, Yes trachea midline, Yes supple, No anterior neck swelling and No tender Chest Chest palpation & inspection: normal inspection of the chest and normal palpation of entire chest wall Resp Effort & Inspection: normal respiratory effort and able to speak in complete sentences Auscultation: clear to auscultation bilaterally Cardio Jugular venous distension: no JVD Heart sounds: S1 normal heart sound present and S2 normal heart sound present GI Inspection: Yes normal to inspection Palpation (GI): Soft to palpation, not firm, nontender, no guarding and not rigid General: No CVA tenderness and Yes no CVA tenderness Back/Spine/Pelvis Back: no CVA tenderness, No CVA tenderness and No back tenderness Skin General skin exam: no rashes or lesions noted, elasticity normal and turgor normal Neuro General: patient oriented x3, tone normal, moves all extremities, Normal light touch and pain sensation, no meningeal signs, no focal motor deficits, CN's II-XI intact bilaterally and normal sensation to monofilament Extrem Other: positive for ankle foot swelling with erythema slight warmth. Psych Appearance: grossly normal, well kempt and not disheveled Medications Administered Generic Name Dose Route Start Last Admin Trade Name Freq PRN Reason Stop Dose Admin Acetaminophen 650 mg 05/21/24 18:15 05/21/24 21:34 Acetaminophen 325 Mg Tablet PO 650 mg Q6H PRN Administration Pain, Mild (Pain Scale 1-3), fever or headache Aspirin 81 mg 05/22/24 09:00 05/22/24 09:07 Aspirin Enteric Coated 81 Mg Tablet. PO 81 mg DAILY JAYNE Administration Docusate Sodium 100 mg 05/21/24 21:00 05/22/24 20:15 Docusate Sodium 100 Mg Capsule PO 100 mg BEDTIME JAYNE Administration Gemfibrozil 600 mg 05/21/24 21:00 05/22/24 20:15 Gemfibrozil 600 Mg Tablet PO 600 mg BID JAYNE Administration Doxycycline Hyclate 100 mg/ 250 mls @ 166.67 mls/hr 05/21/24 21:00 05/22/24 21:46 Sodium Chloride IV Infused BID JAYNE Infusion Insulin Human Lispro 0 unit 05/21/24 21:00 05/22/24 20:15 Insulin Lispro 100 Unit/Ml 3 Ml Vial SUBCUT 2 unit QIDACHS [facility] Administration Protocol Metoprolol Tartrate 50 mg 05/21/24 21:00 05/22/24 20:15 Metoprolol Tartrate 50 Mg Tablet PO 50 mg BID JAYNE Administration Protocol Multivitamins/Vitamin C 1 tab 05/22/24 09:00 05/22/24 09:07 Multivitamin Tablet PO 1 tab DAILY JAYNE Administration Omeprazole 20 mg 05/22/24 06:30 05/22/24 05:42 Omeprazole 20 Mg Capsule.Dr PO 20 mg DAILY@0630 JAYNE Administration Sodium Chloride 3 ml 05/22/24 00:00 05/22/24 20:16 0.9 % Sodium Chloride Flush 3 Ml Syringe IVFLUSH 3 ml QSHIFT JAYNE Administration Discontinued Medications Generic Name Dose Route Start Last Admin Trade Name Freq PRN Reason Stop Dose Admin Sodium Chloride 1,000 mls @ 999 mls/hr 05/21/24 13:15 05/21/24 14:38 Ns IV 05/21/24 14:15 Infused .Q1H1M STA Infusion Sodium Chloride 500 mls @ 500 mls/hr 05/21/24 14:20 05/21/24 14:24 Ns IV 05/21/24 15:19 Not Given .Q1H STA Piperacillin Sod/Tazobactam 50 mls @ 100 mls/hr 05/21/24 17:39 05/21/24 18:52 Sod 3.375 gm/ Sodium Chloride IV 05/21/24 18:08 Infused ONCE ONE Infusion Vancomycin HCl 2,000 mg in 500 mls @ 250 mls/hr 05/21/24 17:39 05/21/24 18:51 Vancomycin/Ns IV 05/21/24 19:38 Not Given ONCE ONE Medical Decision Making Medical Decision Making [facility] Narrative: [age] year male history of diabetes presents to the ED for chronic right ankle foot weakness pain causing difficulty to stand 1 week of now erythema inflammation. Patient denies any recent trauma. Patient seen by multiple specialists orthopedic primary care sent to the ED for evaluation. Patient had x-ray on the 1st of ankle with no results. Spoke to radiology-to expedite reading. I look at x-ray which shows possible Charcot joint. Labs ordered. 2:59pm: Patient's ESR CRP . patient INR PTT repeated and is still elevated 4.9. Patient informed Coumadin will need to be held. Will discuss with attending to see if vitamin K needs to be ordered. Patient on acute on chronic kidney injury. Patient given 500 L of fluids. 1 L was ordered but then BNP came back over 500 so only 500 of the 1 L was given. We will repeat chemistry. Repeat x-ray ordered Due to [facility] stating they would not be able to read outpatient x-ray done 3 days ago. 4:04pm; According to up-to-date Coumadin can be held and vitamin K may not be given unless patient is bleeding. Patient denies any rectal bleeding, vomiting blood, blood in urine,. Whole-body evaluate negative for bruising. Case discussed with Dr. Flores who agrees Coumadin should be held but no vitamin K needed. Patient repeat chemistry pending. Case discussed with orthopedic surgeon due to severe reading of Tricor arthropathy with dislocations or tibial fibula and she states it was a General surgery issue. 5:39pm: case discussed with Dr. Seaman of General surgery after speak with hospitalist who confirmed plan. Dr. Seaman states no open wounds so no surgical intervention indicated. Dr. Andino the hospitalist re-evaluated patient starts and states ESR CRP level too high for just charcoal foot recommend starting IV antibiotics Rule out osteomyelitis Differential Diagnosis Differential Diagnoses: The differential diagnosis associated with the presentation includes (cellulitis, osteomylieitis, fracture, charcot foot) Admission/Observation Consideration of admission/observation: Escalation of care including admission/observation considered Consult Healthcare Provider Management of the patient was discussed with: Hospitalist (Alexis Quiñonez) and [employer] Hand (Dr. Seaman) Lab Data [facility] Lab Attestation statement: I reviewed the patient's lab results. 05/21/24 12:23 05/22/24 05:15 Labs: Lab Results 05/21/24 05/21/24 05/21/24 Range/Units 12:23 13:34 16:16 WBC 6.3 (4.8-10.8) X10*3/uL RBC 3.88 L (4.60-5.80) X10*6/uL Hgb 10.4 L (14.0-18.0) g/dl Hct 32.4 L (42.0-52.0) % MCV 83.5 (80.0-98.0) fL MCH 26.8 L (27.0-33.0) pg MCHC 32.1 (31.0-36.0) g/dl RDW 15.4 (11.0-16.0) % Plt Count 396 D (160-400) X10*3/uL MPV 9.6 (9.4-12.4) fL Immature Gran % (Auto) 0.5 H (0.0-0.4) % Neut % (Auto) 80.4 H (45-73) % Lymph % (Auto) 9.3 L (20-40) % Warrick % (Auto) 6.8 (2-11) % Eos % (Auto) 2.5 (0-4) % Baso % (Auto) 0.5 (0-2) % Lymph # (Auto) 0.6 L (1.2-4.9) X10*3/uL Warrick # (Auto) 0.4 (0.1-1.2) X10*3/uL Eos # (Auto) 0.2 (0.0-0.4) X10*3/uL Baso # (Auto) 0.0 (0.0-0.2) X10*3/uL Abs Immat Gran (auto) 0.03 (0.00-0.03) X10*3/uL Absolute Neuts (auto) 5.1 (2.0-8.3) x10*3/uL Absolute Nucleated RBC 0.000 (0.0-0.012) X10*3/uL Nucleated RBC % (auto) 0.0 (0.0-0.2) /100WBC ESR 90 H (0-15) MM/HR Hold Purple Top SEE NOTE PT 59.6 H 59.0 H (11.1-13.3) SEC INR 4.9 H 4.8 H (0.9-1.1) APTT 67.6 H* 68.5 H* (26.0-36.8) SEC Sodium 139 138 (135-145) mmol/L Potassium 4.6 5.0 (3.3-5.1) mmol/L Chloride 101 104 (96-108) mmol/L Carbon Dioxide 27 21 L (22-29) mmol/L Anion Gap 16 18 (12-20) BUN 45 H 45 H (9-16) mg/dL Creatinine 2.18 H 2.04 H (0.5-1.4) mg/dL Estim Creat Clear Calc 40.1 42.9 Estimated GFR 30 32 Random Glucose 141 H 104 (60-115) mg/dL Estimat Average Glucose 143 mg/dL Hemoglobin A1c % 6.6 H (<6.0) % Lactic Acid 1.4 (0.5-2.0) mmol/L Calcium 10.4 H D 10.2 (8.4-10.2) mg/dL Total Bilirubin 0.3 0.3 (0.0-1.0) mg/dL AST 25 31 (5-37) U/L ALT 19 20 (0-40) U/L Alkaline Phosphatase 104 102 (39-117) U/L C-Reactive Protein 3.84 H (< or = 0.50) mg/dL B-Natriuretic Peptide 595 H (<100) pg/mL Total Protein 7.9 8.3 H (6.5-8.0) g/dL Albumin 4.0 4.0 (3.5-5.0) g/dL Independent Interpretation I performed an independent interpretation of an: Plain X-Ray Radiology Impression Discussion of test interpretation with radiology: I have reviewed the radiologist's reading. Independent Historian Clinical information obtained from an independent historian. History obtained from or confirmed by: Spouse () and Other (patient) External Record Review External record reviewed: Other (prior visits) Critical Care Time Critical Care Time Critical Care Time: Yes Total Critical Care Time: 60 Attestation: Patient treated for osteo vs severe charcot. labs, xray, and antiboitics ordered. Surgery consult and hospitalist consulted. patient admitted. Discharge Plan Discharge Clinical Impression: DARIN (acute kidney injury), Cellulitis, Charcot arthropathy, Charcot foot due to diabetes mellitus Patient Disposition: Admitted As Inpatient Interventions: Admission Worksheet (ED) Last Done: 05/21/24 19:26 Discharge Date/Time: 05/21/24 20:43
[2024-05-21 12:31] LABS: MANUAL DIFF FLAG NO
[2024-05-21 12:32] LABS: Basophils Percent Auto 0.5 % (0-2); Eosinophils Absolute Auto 0.2 X10*3/uL (0.0-0.4); Eosinophils Percent Auto 2.5 % (0-4); Hematocrit 32.4 % (42.0-52.0); Hemoglobin 10.4 g/dl (14.0-18.0); Imm Gran Abs Auto 0.03 X10*3/uL (0.00-0.03); Imm Gran Pct Auto 0.5 % (0.0-0.4); Lymphocytes Absolute Auto 0.6 X10*3/uL (1.2-4.9); Lymphocytes Percent Auto 9.3 % (20-40); Mean Corpuscular HGB Conc 32.1 g/dl (31.0-36.0); Mean Corpuscular Hemoglobin 26.8 pg (27.0-33.0); Mean Corpuscular Volume 83.5 fL (80.0-98.0); Mean Platelet Volume 9.6 fL (9.4-12.4); Monocytes Absolute Auto 0.4 X10*3/uL (0.1-1.2); Monocytes Percent Auto 6.8 % (2-11); Neutrophils Absolute Auto 5.1 x10*3/uL (2.0-8.3); Neutrophils Percent Auto 80.4 % (45-73); Platelet Count 396 X10*3/uL (160-400); Red Blood Count 3.88 X10*6/uL (4.60-5.80); Red Cell Distribution Width 15.4 % (11.0-16.0); White Blood Count 6.3 X10*3/uL (4.8-10.8)
[2024-05-21 12:43] LABS: Lactic Acid 1.4 mmol/L (0.5-2.0)
[2024-05-21 12:45] LABS: INTERNATIONAL NORM RATIO 4.9 (0.9-1.1); Prothrombin Time 59.6 SEC (11.1-13.3)
[2024-05-21 12:47] LABS: Alanine Aminotransferase 19 U/L (0-40); Alkaline Phosphatase 104 U/L (39-117); Anion Gap 16 (12-20); Aspartate Amino Transferase 25 U/L (5-37); Bilirubin Total 0.3 mg/dL (0.0-1.0); Blood Urea Nitrogen 45 mg/dL (9-16); C Reactive Protein 3.84 mg/dL (< or = 0.50); Calcium 10.4 mg/dL (8.4-10.2); Carbon Dioxide 27 mmol/L (22-29); Chloride 101 mmol/L (96-108); Creatinine Clr Calc Pharmacy 40.1; Estimated Glomerular Filt Rate 30; Glucose Random 141 mg/dL (60-115); Potassium 4.6 mmol/L (3.3-5.1); Sodium 139 mmol/L (135-145); Total Protein 7.9 g/dL (6.5-8.0)
[2024-05-21 12:51] LABS: Partial Thromboplastin Time 67.6 SEC (26.0-36.8)
[2024-05-21 13:13] LABS: Erythrocyte Sedimentation Rate 90 MM/HR (0-15)
[2024-05-21] MEDS: 0.9 % Sodium Chloride 1,000 ML 999 ML IV (13:40)
--- NOTE | 2024-05-21 13:42 | PC.NURSE ---
iv inserted additional labs drawn, ivf hung per order call chavarria within reach, will continue to monito r
[2024-05-21 13:50] LABS: INTERNATIONAL NORM RATIO 4.8 (0.9-1.1)
[2024-05-21 13:56] LABS: Partial Thromboplastin Time 68.5 SEC (26.0-36.8)
[2024-05-21 14:00] LABS: B Type Natriuretic Peptide 595 pg/mL (<100)
--- NOTE | 2024-05-21 14:38 | PC.NURSE ---
per provider verbal, d/c initial L NS after 500ml. flds discontinued per JAN.
[2024-05-21 16:39] LABS: Alanine Aminotransferase 20 U/L (0-40); Alkaline Phosphatase 102 U/L (39-117); Anion Gap 18 (12-20); Aspartate Amino Transferase 31 U/L (5-37); Bilirubin Total 0.3 mg/dL (0.0-1.0); Blood Urea Nitrogen 45 mg/dL (9-16); Calcium 10.2 mg/dL (8.4-10.2); Carbon Dioxide 21 mmol/L (22-29); Chloride 104 mmol/L (96-108); Creatinine Clr Calc Pharmacy 42.9; Estimated Glomerular Filt Rate 32; Glucose Random 104 mg/dL (60-115); Sodium 138 mmol/L (135-145); Total Protein 8.3 g/dL (6.5-8.0)
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
[2024-05-21] MEDS: Piperacillin Sodium/Tazobactam 3.375 GM in 0.9 % Sodium Chloride 50 ML IV (18:12)
--- NOTE | 2024-05-21 18:22 | PHA.MEDREC ---
Pharmacy Consult ? Medication Reconciliation Pharmacy has completed the medication reconciliation. Confirmed medications with patient. Per patient he is taking Warfarin 5mg tabs and depending on what his INR is he will take his medicine accordingly to the results.
--- NOTE | 2024-05-21 18:51 | PC.NURSE ---
per ed provider conversation with hospitalist jonah is being held and doxy will be ordered to give. pt already had IV zosyn per order
--- NOTE | 2024-05-21 19:05 | PC.NURSE ---
patient a&ox3, vss, pt eating dinner at this time at bedside, pt states that he has 3/10 pain in rle but most of his pain is when attempting to ambulate and increases to 10/10 then it gradually goes back to 0 after no ambulation. Pt currently not wishing to wear hospital attire. vss will continue to monitor
[2024-05-21 19:06] LABS: Glucose, Whole Blood 90 mg/dL (60-115)
[2024-05-21] MEDS: gemfibroziL 600 MG TABLET PO (21:29)
[2024-05-21] MEDS: Metoprolol Tartrate 50 MG TABLET PO (21:29)
[2024-05-21] MEDS: Docusate Sodium 100 MG CAPSULE PO (21:29)
[2024-05-21] MEDS: Insulin Lispro 100 UNIT/ML 3 ML VIAL SUBCUT (21:31)
[2024-05-21] MEDS: Doxycycline Hyclate 100 MG in 0.9 % Sodium Chloride 250 ML 166.67 MG IV (21:33)
[2024-05-21] MEDS: Acetaminophen 325 MG TABLET 650 MG PO (21:34)
[2024-05-21] MEDS: 0.9 % Sodium Chloride Flush 3 ML SYRINGE IVFLUSH (21:45)
[2024-05-22 01:47] VITALS: BMI 36.6
[2024-05-22 03:04] LABS: Estimated Average Glucose 143 mg/dL; Hemoglobin A1c % 6.6 % (<6.0)
[2024-05-22 04:00] VITALS: BP 168/82; PULSE 65; RESP 20; TEMP 36.2; O2SAT 98
[2024-05-22 05:05] LABS: Glucose, Whole Blood 182 mg/dL (60-115)
[2024-05-22] MEDS: Omeprazole 20 MG CAPSULE.DR PO (05:42)
[2024-05-22 06:02] LABS: Anion Gap 14 (12-20); Blood Urea Nitrogen 46 mg/dL (9-16); Calcium 9.6 mg/dL (8.4-10.2); Carbon Dioxide 25 mmol/L (22-29); Chloride 104 mmol/L (96-108); Creatinine Clr Calc Pharmacy 45.3; Estimated Glomerular Filt Rate 34; Glucose Random 110 mg/dL (60-115); Sodium 139 mmol/L (135-145)
[2024-05-22 06:29] LABS: Prothrombin Time 48.4 SEC (11.1-13.3)
[2024-05-22 07:30] VITALS: BP 168/75; PULSE 58; RESP 16; TEMP 36.3; O2SAT 98
[2024-05-22 07:37] LABS: Glucose, Whole Blood 111 mg/dL (60-115)
[2024-05-22] MEDS: 0.9 % Sodium Chloride Flush 3 ML SYRINGE IVFLUSH ×3 (09:06→20:16)
[2024-05-22] MEDS: Multivitamin TABLET 1 TAB PO (09:07)
[2024-05-22] MEDS: Aspirin Enteric Coated 81 MG TABLET.DR PO (09:07)
[2024-05-22] MEDS: Metoprolol Tartrate 50 MG TABLET PO ×2 (09:08→20:15)
[2024-05-22] MEDS: gemfibroziL 600 MG TABLET PO ×2 (09:08→20:15)
[2024-05-22] MEDS: Doxycycline Hyclate 100 MG in 0.9 % Sodium Chloride 250 ML IV (09:09)
[2024-05-22 09:38] VITALS: BP 168/75
--- NOTE | 2024-05-22 10:04 | HO.PM.IMPN ---
Subjective Subjective Date of Service: 05/22/24 Interval History: f/u on charcot joint and cellulitis interval history: still has pain, and swelling and residual redness Review of Systems right ankle pain, no fever, no sob, no chest pain,.. all other system reviewed and are negative. Physical Exam Vital Signs: Vital Signs: Last Vital Signs Temp 97.3 F 05/22/24 07:30 Pulse 58 05/22/24 07:30 Resp 16 05/22/24 07:30 BP 168/75 H 05/22/24 09:38 Pulse Ox 98 05/22/24 07:30 O2 Del Method Room Air 05/22/24 07:30 BMI result Body Mass Index 36.6 Const: Other: Constitutional: Alert, in no distress, overweight. Mental Status: Oriented to person, place and time. Respiratory: Clear to auscultation. No wheezing, rales or rhonchi. Cardiovascular: S1 S2 regular. No murmurs, rubs or gallops. mechanical heart sounds Gastrointestinal: Abdomen soft, non-tender, non-distended. Normal bowel sounds.? Neurologic: Cranial nerves II-XII grossly intact. No focal neurological deficits. Moves all extremities spontaneously.? Skin: No rashes or lesions.? MSK: deformed right ankle with swelling, and some redness--essentially unchanged Musculoskeletal: No cyanosis or clubbing. Psychiatric: Normal mood and affect? General: cooperative, healthy appearing, comfortable, no acute distress, well developed, alert, awake and Physically active Orientation/consciousness: patient oriented x3 HEENT: Head: Yes normal to inspection, Yes No palpable skull fracture present, Yes normocephalic and Yes atraumatic Eyes: General: appearance normal, both eyes and all related structures Neck: Neck: Yes normal visual inspection, Yes full ROM, Yes no lymphadenopathy, Yes no meningeal signs, Yes trachea midline, Yes supple, No anterior neck swelling and No tender Chest: Chest palpation & inspection: normal inspection of the chest and normal palpation of entire chest wall Resp: Effort & Inspection: normal respiratory effort and able to speak in complete sentences Auscultation: clear to auscultation bilaterally Cardio: Jugular venous distension: no JVD Heart sounds: S1 normal heart sound present and S2 normal heart sound present GI: Inspection: Yes normal to inspection Palpation (GI): Soft to palpation, not firm, nontender, no guarding and not rigid : General: No CVA tenderness and Yes no CVA tenderness Back/Spine/Pelvis: Back: no CVA tenderness, No CVA tenderness and No back tenderness Skin: General skin exam: no rashes or lesions noted, elasticity normal and turgor normal Neuro: General: patient oriented x3, tone normal, moves all extremities, Normal light touch and pain sensation, no meningeal signs, no focal motor deficits, CN's II-XI intact bilaterally and normal sensation to monofilament Extrem: Other: positive for ankle foot swelling with erythema slight warmth. Psych: Appearance: grossly normal, well kempt and not disheveled Objective Data Active Medications Acetaminophen (Acetaminophen 325 Mg Tablet) 650 mg PO Q6H PRN PRN Reason: Pain, Mild (Pain Scale 1-3), fever or headache Last Admin: 05/21/24 21:34 Dose: 650 mg Documented By: ULICES Aspirin (Aspirin Enteric Coated 81 Mg Tablet.Dr) 81 mg PO DAILY [facility] Last Admin: 05/22/24 09:07 Dose: 81 mg Documented By: FANTA Calcium Carbonate (Calcium Carbonate 750 Mg Tab.Chew) 750 mg PO Q4H PRN PRN Reason: Heartburn Docusate Sodium (Docusate Sodium 100 Mg Capsule) 100 mg PO BEDTIME [facility] Last Admin: 05/21/24 21:29 Dose: 100 mg Documented By: ULICES Gemfibrozil (Gemfibrozil 600 Mg Tablet) 600 mg PO BID [facility] Last Admin: 05/22/24 09:08 Dose: 600 mg Documented By: FANTA Glucose (Glucose Gel 15 Gm Gel..Gram.) 15 gm PO Q15M PRN; Protocol PRN Reason: per Hypoglycemia Standing Ord. Dextrose (D10) 250 mls @ 750 mls/hr IV Q15M PRN; Protocol PRN Reason: per Hypoglycemia Standing Ord. Doxycycline Hyclate 100 mg/ (Sodium Chloride) 250 mls @ 166.67 mls/hr IV BID [facility] Last Admin: 05/22/24 09:09 Dose: 100 mls/hr Documented By: FANTA Insulin Human Lispro (Insulin Lispro 100 Unit/Ml 3 Ml Vial) 0 unit SUBCUT QIDACHS [facility]; Protocol Last Admin: 05/22/24 07:40 Dose: Not Given Documented By: FANTA Non-Admin Reason: No Insulin Coverage Magnesium Hydroxide (Milk Of Magnesia 30 Ml Oral.Susp) 30 ml PO DAILY PRN PRN Reason: Constipation Melatonin (Melatonin 3 Mg Tablet) 6 mg PO BEDTIME PRN PRN Reason: Insomnia Metoprolol Tartrate (Metoprolol Tartrate 50 Mg Tablet) 50 mg PO BID [facility]; Protocol Last Admin: 05/22/24 09:08 Dose: 50 mg Documented By: FANTA Multivitamins/Vitamin C (Multivitamin Tablet) 1 tab PO DAILY [facility] Last Admin: 05/22/24 09:07 Dose: 1 tab Documented By: FANTA Omeprazole (Omeprazole 20 Mg Capsule.Dr) 20 mg PO DAILY@0630 [facility] Last Admin: 05/22/24 05:42 Dose: 20 mg Documented By: ULICES Oxycodone HCl (Oxycodone Hcl Immed Release 5 Mg Tablet) 5 mg PO Q6H PRN PRN Reason: Pain, Severe (Pain Scale 7-10) Polyethylene Glycol (Polyethylene Glycol 3350 17 Gm Powd.Pack) 17 gm PO DAILY PRN PRN Reason: Constipation Sodium Chloride (0.9 % Sodium Chloride Flush 3 Ml Syringe) 3 ml IVFLUSH QSHIFT [facility] Last Admin: 05/22/24 09:06 Dose: 3 ml Documented By: FANTA Labs 05/21/24 12:23 05/22/24 05:15 Labs: Laboratory Results - last 24 hr 05/21/24 05/21/24 05/21/24 12:23 13:34 16:16 MCV 83.5 MCH 26.8 L MCHC 32.1 RDW 15.4 Plt Count 396 D MPV 9.6 Immature Gran % (Auto) 0.5 H Neut % (Auto) 80.4 H Lymph % (Auto) 9.3 L [place] % (Auto) 6.8 Eos % (Auto) 2.5 Baso % (Auto) 0.5 Lymph # (Auto) 0.6 L [place] # (Auto) 0.4 Eos # (Auto) 0.2 Baso # (Auto) 0.0 Abs Immat Gran (auto) 0.03 Absolute Neuts (auto) 5.1 Absolute Nucleated RBC 0.000 Nucleated RBC % (auto) 0.0 ESR 90 H Hold Purple Top SEE NOTE PT 59.6 H 59.0 H INR 4.9 H 4.8 H APTT 67.6 H* 68.5 H* Anion Gap 16 18 Estim Creat Clear Calc 40.1 42.9 Estimated GFR 30 32 POC Glucose Random Glucose 141 H 104 Estimat Average Glucose 143 Hemoglobin A1c % 6.6 H Lactic Acid 1.4 Calcium 10.4 H D 10.2 Total Bilirubin 0.3 0.3 AST 25 31 ALT 19 20 Alkaline Phosphatase 104 102 C-Reactive Protein 3.84 H B-Natriuretic Peptide 595 H Total Protein 7.9 8.3 H Albumin 4.0 4.0 05/21/24 05/21/24 05/22/24 19:01 21:10 05:15 MCV MCH MCHC RDW Plt Count MPV Immature Gran % (Auto) Neut % (Auto) Lymph % (Auto) [place] % (Auto) Eos % (Auto) Baso % (Auto) Lymph # (Auto) [place] # (Auto) Eos # (Auto) Baso # (Auto) Abs Immat Gran (auto) Absolute Neuts (auto) Absolute Nucleated RBC Nucleated RBC % (auto) ESR Hold Purple Top PT 48.4 H INR 4.0 H APTT Anion Gap 14 Estim Creat Clear Calc 45.3 Estimated GFR 34 POC Glucose 90 182 H Random Glucose 110 Estimat Average Glucose Hemoglobin A1c % Lactic Acid Calcium 9.6 Total Bilirubin AST ALT Alkaline Phosphatase C-Reactive Protein B-Natriuretic Peptide Total Protein Albumin 05/22/24 07:28 MCV MCH MCHC RDW Plt Count MPV Immature Gran % (Auto) Neut % (Auto) Lymph % (Auto) [place] % (Auto) Eos % (Auto) Baso % (Auto) Lymph # (Auto) [place] # (Auto) Eos # (Auto) Baso # (Auto) Abs Immat Gran (auto) Absolute Neuts (auto) Absolute Nucleated RBC Nucleated RBC % (auto) ESR Hold Purple Top PT INR APTT Anion Gap Estim Creat Clear Calc Estimated GFR POC Glucose 111 Random Glucose Estimat Average Glucose Hemoglobin A1c % Lactic Acid Calcium Total Bilirubin AST ALT Alkaline Phosphatase C-Reactive Protein B-Natriuretic Peptide Total Protein Albumin Assessment and Plan (1) Charcot arthropathy: Status: Acute (2) Cellulitis: Status: Acute Plan 73 year old male with with multiple problem as above here with right ankle charcot joint pain, DARIN Charcot Arthropathy--unclear if there is superimposed occult infection, given elevated ESR and CRP, will give empiric Abx, and Monitor, surgery consult DARIN on CKD 3--likely pre renal due diuretics, hold diuretics, follow level..oveall better S/P AVR, hold coumadin today and repeat INR tomorror Diabetes--hold metformin d/t renal failure, sliding scle insulin, glucose level is normal HTN continue Metoprolol, hold diuretical GERD --omeprazole HLD--Gemfibrozil DVT prophyalaxis--coumadin Full code Admission for at least 2 midnight for the management of DARIN with IVF, IV for cellulitis Quality Stroke Does the patient have a stroke diagnosis?: No VTE Prior VTE?: No VTE Risk Level:: Medical - moderate - high VTE Device Contraindication: Treatment Not Indicated VTE Drug Contraindication: N/A - Med Ordered
[2024-05-22 11:13] LABS: Glucose, Whole Blood 129 mg/dL (60-115)
[2024-05-22 16:00] VITALS: BP 135/72; PULSE 62; RESP 16; TEMP 36.2; O2SAT 98
[2024-05-22 16:24] LABS: Glucose, Whole Blood 121 mg/dL (60-115)
--- NOTE | 2024-05-22 16:27 | MHC.CM.PN ---
CM MET WITH PT AND AT BEDSIDE PT IS INDEPENDENT WITH CARE AT BASELINE HE HAS A CANE AND CRUTCHES, BUT WAS TOLD HE WOULD NEED A WALKER AT DC PT WILL COMPLETE A HCP NAMING HIS HIS AGENT DURING THIS ADMISSION PCP: CINDY ALVARENGA IMM DELIVERED DCP: HOME NO SERVICES WILL NEED A WALKER OR Rx FOR ONE WILL TRANSPORT
[2024-05-22 19:16] VITALS: BP 140/75; PULSE 68; RESP 17; TEMP 36.1; O2SAT 100
[2024-05-22 20:00] LABS: Glucose, Whole Blood 164 mg/dL (60-115)
[2024-05-22] MEDS: Doxycycline Hyclate 100 MG in 0.9 % Sodium Chloride 250 ML 166.67 MG IV (20:15)
[2024-05-22] MEDS: Docusate Sodium 100 MG CAPSULE PO (20:15)
[2024-05-22] MEDS: Insulin Lispro 100 UNIT/ML 3 ML VIAL SUBCUT (20:15)
[2024-05-23 03:40] VITALS: BP 148/72; PULSE 55; RESP 18; TEMP 36.2; O2SAT 98
[2024-05-23] MEDS: Omeprazole 20 MG CAPSULE.DR PO (05:46)
[2024-05-23 07:14] VITALS: BP 152/74; PULSE 63; RESP 17; TEMP 36; O2SAT 99
[2024-05-23 07:15] LABS: Anion Gap 15 (12-20); Blood Urea Nitrogen 36 mg/dL (9-16); Calcium 10.5 mg/dL (8.4-10.2); Carbon Dioxide 25 mmol/L (22-29); Chloride 103 mmol/L (96-108); Creatinine Clr Calc Pharmacy 52.4; Estimated Glomerular Filt Rate 40; Glucose Random 146 mg/dL (60-115); Potassium 4.6 mmol/L (3.3-5.1); Sodium 138 mmol/L (135-145)
[2024-05-23 07:24] LABS: Glucose, Whole Blood 138 mg/dL (60-115)
[2024-05-23] MEDS: Aspirin Enteric Coated 81 MG TABLET.DR PO (08:08)
[2024-05-23] MEDS: 0.9 % Sodium Chloride Flush 3 ML SYRINGE IVFLUSH ×3 (08:08→20:41)
[2024-05-23] MEDS: gemfibroziL 600 MG TABLET PO ×2 (08:08→20:49)
[2024-05-23] MEDS: Doxycycline Hyclate 100 MG in 0.9 % Sodium Chloride 250 ML 166.67 MG IV ×2 (08:08→20:41)
[2024-05-23] MEDS: Warfarin Sodium 3 MG TABLET PO (08:08)
[2024-05-23] MEDS: Metoprolol Tartrate 50 MG TABLET PO ×2 (08:09→20:18)
[2024-05-23] MEDS: Multivitamin TABLET 1 TAB PO (08:09)
--- NOTE | 2024-05-23 08:25 | P.PNIM_ITS ---
Subjective Subjective Date of Service: 05/23/24 Interval History: f/u on charcot joint and cellulitis interval history: Still has pain in the joint but not much redness Physical Exam 2 Vital Signs: Vital Signs: Last Vital Signs Temp 96.8 F 05/23/24 07:14 Pulse 63 05/23/24 07:14 Resp 17 05/23/24 07:14 BP 152/74 H 05/23/24 07:14 Pulse Ox 99 05/23/24 07:14 O2 Del Method Room Air 05/23/24 07:14 BMI result Body Mass Index 36.6 General: AO X 3, no acute distress Resp: CTA bilateral CVS: S1,S2,RRR GI: +BS, NT, no distention Skin: Neuro: motor grossly intact Psych: appropriate affect Objective Data Active Medications Acetaminophen (Acetaminophen 325 Mg Tablet) 650 mg PO Q6H PRN PRN Reason: Pain, Mild (Pain Scale 1-3), fever or headache Last Admin: 05/21/24 21:34 Dose: 650 mg Documented By: ULICES Aspirin (Aspirin Enteric Coated 81 Mg Tablet.Dr) 81 mg PO DAILY [facility] Last Admin: 05/23/24 08:08 Dose: 81 mg Documented By: EVERT Calcium Carbonate (Calcium Carbonate 750 Mg Tab.Chew) 750 mg PO Q4H PRN PRN Reason: Heartburn Docusate Sodium (Docusate Sodium 100 Mg Capsule) 100 mg PO BEDTIME [facility] Last Admin: 05/22/24 20:15 Dose: 100 mg Documented By: BENJAMIN Gemfibrozil (Gemfibrozil 600 Mg Tablet) 600 mg PO BID [facility] Last Admin: 05/23/24 08:08 Dose: 600 mg Documented By: EVERT Glucose (Glucose Gel 15 Gm Gel..Gram.) 15 gm PO Q15M PRN; Protocol PRN Reason: per Hypoglycemia Standing Ord. Dextrose (D10) 250 mls @ 750 mls/hr IV Q15M PRN; Protocol PRN Reason: per Hypoglycemia Standing Ord. Doxycycline Hyclate 100 mg/ (Sodium Chloride) 250 mls @ 166.67 mls/hr IV BID [facility] Last Admin: 05/23/24 08:08 Dose: 166.67 mls/hr Documented By: EVERT Insulin Human Lispro (Insulin Lispro 100 Unit/Ml 3 Ml Vial) 0 unit SUBCUT QIDACHS [facility]; Protocol Last Admin: 05/23/24 07:25 Dose: Not Given Documented By: EVERT Non-Admin Reason: No Insulin Coverage Magnesium Hydroxide (Milk Of Magnesia 30 Ml Oral.Susp) 30 ml PO DAILY PRN PRN Reason: Constipation Melatonin (Melatonin 3 Mg Tablet) 6 mg PO BEDTIME PRN PRN Reason: Insomnia Metoprolol Tartrate (Metoprolol Tartrate 50 Mg Tablet) 50 mg PO BID [facility]; Protocol Last Admin: 05/23/24 08:09 Dose: 50 mg Documented By: EVERT Multivitamins/Vitamin C (Multivitamin Tablet) 1 tab PO DAILY [facility] Last Admin: 05/23/24 08:09 Dose: 1 tab Documented By: EVERT Omeprazole (Omeprazole 20 Mg Capsule.Dr) 20 mg PO DAILY@0630 [facility] Last Admin: 05/23/24 05:46 Dose: 20 mg Documented By: BENJAMIN Oxycodone HCl (Oxycodone Hcl Immed Release 5 Mg Tablet) 5 mg PO Q6H PRN PRN Reason: Pain, Severe (Pain Scale 7-10) Polyethylene Glycol (Polyethylene Glycol 3350 17 Gm Powd.Pack) 17 gm PO DAILY PRN PRN Reason: Constipation Sodium Chloride (0.9 % Sodium Chloride Flush 3 Ml Syringe) 3 ml IVFLUSH QSHIFT [facility] Last Admin: 05/23/24 08:08 Dose: 3 ml Documented By: EVERT Warfarin Sodium (Warfarin Sodium 5 Mg Tablet) 5 mg PO DAILY@1800 [facility] Labs 05/21/24 12:23 05/23/24 06:54 Labs: Laboratory Results - last 24 hr 05/22/24 05/22/24 05/22/24 11:06 16:20 19:56 PT INR Anion Gap Estim Creat Clear Calc Estimated GFR POC Glucose 129 H 121 H 164 H Random Glucose Calcium 05/23/24 05/23/24 06:54 07:19 PT 24.0 H D INR 2.0 H D Anion Gap 15 Estim Creat Clear Calc 52.4 Estimated GFR 40 POC Glucose 138 H Random Glucose 146 H Calcium 10.5 H D Microbiology Microbiology Results: Microbiology 05/21/24 12:52 Blood Culture - Preliminary Blood - Venous No growth after 24 hours. 05/21/24 12:23 Blood Culture - Preliminary Blood - Venous No growth after 24 hours. Assessment and Plan (1) Charcot arthropathy: Status: Acute (2) Cellulitis: Status: Acute Plan 73 year old male with with multiple problem as above here with right ankle charcot joint pain, DARIN Charcot Arthropathy--unclear if there is superimposed occult infection, given elevated ESR and CRP, will give empiric Abx. skin looks the same and similar to other leg, likely chronic venous stasis. elevated CRP and ESR likely related joint inflamation for repeatedly twisting it and less likely OM. for now will continue Doxy. Get Ortho to comment if anything if at all can be done to the joint short of amputation DARIN on CKD 3--likely pre renal due diuretics, hold diuretics, follow level, creatine back to baseline S/P AVR, INR down from 4 to 2 today, restart coumadin and given additional dose this morning, repeat INR in the afternoon prior to scheduled coumadin dose Diabetes--hold metformin d/t renal failure, sliding scle insulin. Metformin should be avoided for Cr > 1.5, glipizide should be considered as alternative HTN continue Metoprolol. Was on Bumex 2 mg daily, and Torsemide 80 mg daily. restart Bumex at 1 mg daily and continue holding Torsemide for now GERD --omeprazole HLD--Gemfibrozil DVT prophyalaxis--coumadin Full code Admission for at least 2 midnight for the management of DARIN with IVF, IV for cellulitis Quality Stroke Does the patient have a stroke diagnosis?: No VTE Prior VTE?: No VTE Risk Level:: Medical - moderate - high VTE Device Contraindication: Treatment Not Indicated VTE Drug Contraindication: N/A - Med Ordered
[2024-05-23 09:07] VITALS: BP 152/70
[2024-05-23] MEDS: Bumetanide 1 MG TABLET PO (09:07)
[2024-05-23 11:16] LABS: Glucose, Whole Blood 167 mg/dL (60-115)
[2024-05-23] MEDS: Insulin Lispro 100 UNIT/ML 3 ML VIAL SUBCUT (11:43)
[2024-05-23 15:26] VITALS: BP 132/84; PULSE 68; RESP 16; TEMP 36.6; O2SAT 94
[2024-05-23 16:20] LABS: Glucose, Whole Blood 150 mg/dL (60-115)
[2024-05-23 17:04] LABS: INTERNATIONAL NORM RATIO 1.7 (0.9-1.1); Prothrombin Time 20.7 SEC (11.1-13.3)
[2024-05-23] MEDS: Warfarin Sodium 5 MG TABLET PO (17:14)
[2024-05-23 19:06] VITALS: BP 124/60; PULSE 69; RESP 16; TEMP 36.6; O2SAT 100
[2024-05-23 20:09] LABS: Glucose, Whole Blood 121 mg/dL (60-115)
[2024-05-23 20:18] VITALS: BP 124/60; PULSE 69
[2024-05-23] MEDS: Docusate Sodium 100 MG CAPSULE PO (20:18)
[2024-05-24 03:30] VITALS: BP 162/76; PULSE 61; RESP 16; TEMP 36; O2SAT 99
[2024-05-24] MEDS: Omeprazole 20 MG CAPSULE.DR PO (05:40)
[2024-05-24 07:17] LABS: Glucose, Whole Blood 138 mg/dL (60-115)
[2024-05-24 07:54] VITALS: BP 160/68; PULSE 57; RESP 16; TEMP 36.1; O2SAT 98
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
[2024-05-24 08:26] VITALS: PULSE 62
[2024-05-24] MEDS: gemfibroziL 600 MG TABLET PO (08:26)
[2024-05-24] MEDS: Metoprolol Tartrate 50 MG TABLET PO (08:26)
[2024-05-24] MEDS: Multivitamin TABLET 1 TAB PO (08:26)
[2024-05-24] MEDS: 0.9 % Sodium Chloride Flush 3 ML SYRINGE IVFLUSH (08:27)
[2024-05-24] MEDS: Doxycycline Monohydrate 100 MG CAPSULE PO (08:27)
[2024-05-24] MEDS: Bumetanide 1 MG TABLET PO (08:27)
[2024-05-24] MEDS: Aspirin Enteric Coated 81 MG TABLET.DR PO (08:27)
[2024-05-24] MEDS: glipiZIDE XL 2.5 MG TAB.ER.24 PO (08:39)
[2024-05-24 08:46] LABS: INTERNATIONAL NORM RATIO 1.7 (0.9-1.1); Prothrombin Time 20.2 SEC (11.1-13.3)
[2024-05-24 08:54] LABS: C Reactive Protein 2.68 mg/dL (< or = 0.50)
[2024-05-24 08:54] LABS: Anion Gap 14 (12-20); Blood Urea Nitrogen 32 mg/dL (9-16); Calcium 10.3 mg/dL (8.4-10.2); Carbon Dioxide 23 mmol/L (22-29); Chloride 104 mmol/L (96-108); Creatinine Clr Calc Pharmacy 55.4; Estimated Glomerular Filt Rate 43; Glucose Random 154 mg/dL (60-115); Potassium 4.1 mmol/L (3.3-5.1); Sodium 137 mmol/L (135-145)
[2024-05-24 09:24] LABS: Erythrocyte Sedimentation Rate 88 MM/HR (0-15)
[2024-05-24 11:21] LABS: Glucose, Whole Blood 168 mg/dL (60-115)
--- NOTE | 2024-05-24 11:35 | P.CONGS_ITS ---
History of Present Illness Consult details Consult date: 05/24/24 Narrative: Very pleasant 73-year-old gentleman presents for evaluation regarding his right foot. He has a longstanding history of swelling of the foot and known Charcot foot. He reports that he has significant difficulty ambulating and feels that his leg constantly rolls over. Now presents to us for vascular evaluation. Review of Systems 2 Constitutional: Constitutional: Reports as per HPI ENT: Reports system reviewed and no additional complaints, except as documented Cardiovascular: Cardiovascular: Denies chest pain, Denies chest pain at rest and Denies chest pain with activity Respiratory: Respiratory: Denies chest congestion and Denies cough Gastrointestinal: Gastrointestinal: Reports no additional gastrointestinal complaints Musculoskeletal: Musculoskeletal: Denies abnormal gait Integumentary/Breasts: Skin/Breast: Reports pruritus and Denies wounds Neurologic: Reports system reviewed and no additional complaints, except as documented and Denies abnormal gait Psychiatric: Psychiatric: Denies no additional psychiatric complaints [facility] Past Medical History Medical History (Updated 05/24/24 @ 11:41 by Gabo Christian MD) Hypertension Cataract (lens) fragments in eye following cataract surgery, bilateral Surgical absence of teeth History of cardioversion Peripheral edema Atrial fibrillation Stomach ulcer CVA (cerebral vascular accident) H/O coronary angiogram Squamous cell carcinoma, arm Basal cell carcinoma (BCC) Hepatitis B Peritonitis Melanoma Complete heart block Cardiac arrest Pacemaker Diabetes Surgical History Surgical History (Updated 05/21/24 @ 18:50 by Kat Sauceda RN) H/O cardiac radiofrequency ablation S/P cardiac cath S/P triple vessel bypass Aortic valve replaced History of carpal tunnel surgery S/P appendectomy S/P tonsillectomy Social History Social History Household Members: Spouse Housing: House Do you presently have visiting nurse or other home services: No Patient Tobacco Use Status: Never used Tobacco Smoked in Last 30 Days: No e-Cigarette/Vaping Use: Never Used Use of substances other than those prescribed or required for medical reasons: No Currently Displaying Signs/Symptoms of Drug Intoxication Withdrawal: No Any prior treatment program specific to substance use: No Have you been hit, kicked, punched, or otherwise hurt by someone within the past year? If so, by whom?: No Do you feel safe in your current relationship?: Yes Is there a partner from a previous relationship who is making you feel unsafe now?: No Are you made to feel afraid or neglected: No Advance Directives: No Advance Directives Information Provided: Yes Advance Directives Date on File: 08/23/20 Do you have a plan to hurt others: No Plan Recently lost weight without trying: No Nutrition Risks: No Nutritional Risk Poor oral hygiene: No service: Yes Meds Allergies Allergy/AdvReac Type Severity Reaction Status Date / Time Iodinated Contrast Media Allergy Unknown SEVERE Verified 05/21/24 18:57 [IV CONTRAST] HTN,REDNESS latex [LATEX] Allergy Unknown RASH Verified 05/21/24 18:57 ivp dye Allergy Unknown Hypertensio Uncoded 05/21/24 10:30 n latex Allergy Unknown Rash Uncoded 05/21/24 10:30 Active Medications: Current Medications Acetaminophen (Acetaminophen 325 Mg Tablet) 650 mg PO Q6H PRN PRN Reason: Pain, Mild (Pain Scale 1-3), fever or headache Last Admin: 05/21/24 21:34 Dose: 650 mg Aspirin (Aspirin Enteric Coated 81 Mg Tablet.Dr) 81 mg PO DAILY [facility] Last Admin: 05/24/24 08:27 Dose: 81 mg Bumetanide (Bumetanide 1 Mg Tablet) 1 mg PO DAILY [facility]; Protocol Last Admin: 05/24/24 08:27 Dose: 1 mg Calcium Carbonate (Calcium Carbonate 750 Mg Tab.Chew) 750 mg PO Q4H PRN PRN Reason: Heartburn Docusate Sodium (Docusate Sodium 100 Mg Capsule) 100 mg PO BEDTIME [facility] Last Admin: 05/23/24 20:18 Dose: 100 mg Doxycycline Monohydrate (Doxycycline Monohydrate 100 Mg Capsule) 100 mg PO BID [facility] Last Admin: 05/24/24 08:27 Dose: 100 mg Enoxaparin Sodium (Enoxaparin Sodium 120 Mg/0.8 Ml Syringe) 120 mg SUBCUT Q12H [facility] Last Admin: 05/24/24 07:46 Dose: Not Given Gemfibrozil (Gemfibrozil 600 Mg Tablet) 600 mg PO BID [facility] Last Admin: 05/24/24 08:26 Dose: 600 mg Glipizide (Glipizide Xl 2.5 Mg Tab.Er.24) 2.5 mg PO DAILY [facility] Last Admin: 05/24/24 08:39 Dose: 2.5 mg Glucose (Glucose Gel 15 Gm Gel..Gram.) 15 gm PO Q15M PRN; Protocol PRN Reason: per Hypoglycemia Standing Ord. Dextrose (D10) 250 mls @ 750 mls/hr IV Q15M PRN; Protocol PRN Reason: per Hypoglycemia Standing Ord. Insulin Human Lispro (Insulin Lispro 100 Unit/Ml 3 Ml Vial) 0 unit SUBCUT QIDACHS [facility]; Protocol Last Admin: 05/24/24 07:18 Dose: Not Given Magnesium Hydroxide (Milk Of Magnesia 30 Ml Oral.Susp) 30 ml PO DAILY PRN PRN Reason: Constipation Melatonin (Melatonin 3 Mg Tablet) 6 mg PO BEDTIME PRN PRN Reason: Insomnia Metoprolol Tartrate (Metoprolol Tartrate 50 Mg Tablet) 50 mg PO BID [facility]; Protocol Last Admin: 05/24/24 08:26 Dose: 50 mg Multivitamins/Vitamin C (Multivitamin Tablet) 1 tab PO DAILY [facility] Last Admin: 05/24/24 08:26 Dose: 1 tab Omeprazole (Omeprazole 20 Mg Capsule.Dr) 20 mg PO DAILY@0630 [facility] Last Admin: 05/24/24 05:40 Dose: 20 mg Oxycodone HCl (Oxycodone Hcl Immed Release 5 Mg Tablet) 5 mg PO Q6H PRN PRN Reason: Pain, Severe (Pain Scale 7-10) Polyethylene Glycol (Polyethylene Glycol 3350 17 Gm Powd.Pack) 17 gm PO DAILY PRN PRN Reason: Constipation Sodium Chloride (0.9 % Sodium Chloride Flush 3 Ml Syringe) 3 ml IVFLUSH QSHIFT [facility] Last Admin: 05/24/24 08:27 Dose: 3 ml Warfarin Sodium (Warfarin Sodium 5 Mg Tablet) 5 mg PO DAILY@1800 [facility] Last Admin: 05/23/24 17:14 Dose: 5 mg Home Medications ?Medication ?Instructions ?Recorded ?Confirmed ?Last Taken ?Type amino ac-vit [id number] 1 tab PO BID 05/21/24 05/21/24 Unknown History tablet aspirin 81 mg tablet,delayed 81 mg PO DAILY 05/21/24 05/21/24 05/21/24 08:00 History release bumetanide 1 mg tablet 2 mg PO DAILY 05/21/24 05/21/24 05/21/24 08:00 History docusate sodium 100 mg capsule 100 mg PO BEDTIME 07/05/24 07/05/24 07/04/24 History esomeprazole magnesium 20 mg 20 mg PO DAILY@0630 05/21/24 05/21/24 05/21/24 08:00 History capsule,delayed release gemfibrozil 600 mg tablet 600 mg PO BID 05/21/24 05/21/24 05/21/24 08:00 History metoprolol tartrate 50 mg tablet 50 mg PO BID 05/21/24 05/21/24 05/21/24 08:00 History multivitamin 1 tab PO DAILY 05/21/24 05/21/24 05/21/24 08:00 History sitagliptin phosphate 50 1 tab PO BID 05/21/24 05/21/24 05/21/24 08:00 History mg-metformin 500 mg tablet ([place]) torsemide 20 mg tablet 80 mg PO DAILY 05/21/24 05/21/24 05/21/24 08:00 History warfarin 5 mg tablet 5 mg PO DAILY@1800 05/21/24 05/21/24 05/20/24 History Physical Exam 2 Vital Signs: Vital Signs: Last Vital Signs Temp 96.9 F 05/24/24 07:54 Pulse 62 05/24/24 08:26 Resp 16 05/24/24 07:54 BP 160/68 H 05/24/24 07:54 Pulse Ox 98 05/24/24 07:54 O2 Del Method Room Air 05/24/24 07:54 BMI result Body Mass Index 36.6 Const: General: cooperative, healthy appearing and comfortable O rientation/consciousness: oriented to person, oriented to place and oriented to time Neck: Carotids: no bruits Chest: Chest palpation & inspection: normal inspection of the chest and normal palpation of entire chest wall Resp: Effort & Inspection: normal respiratory effort and able to speak in complete sentences Cardio: Rate: regular rate Heart sounds: S1 normal heart sound present and S2 normal heart sound present Peripheral pulses: Peripheral pulses 2+ throughout GI: Inspection: Yes normal to inspection Skin: Other: +2 edema, large rope-like varicosities greater than 4 mm CEAP Classification C4 - skin color changes Ep - Etiology Primary As - superficial veins P - reflux General skin exam: dry skin Neuro: General: oriented to person, oriented to place and oriented to time Extrem: Other: Evidence of Charcot foot with a valgus deformity. +2 to +3 edema Right lower extremity: full ROM, normal capillary refill and edema Left lower extremity: full ROM, normal capillary refill and edema Psych: Mental Status: mental status grossly normal Results Labs 05/21/24 12:23 05/24/24 08:18 Labs: Abnormal lab results 05/23/24 05/23/24 05/23/24 Range/Units 16:17 16:43 20:05 ESR (0-15) MM/HR PT 20.7 H (11.1-13.3) SEC INR 1.7 H (0.9-1.1) BUN (9-16) mg/dL Creatinine (0.5-1.4) mg/dL POC Glucose 150 H 121 H (60-115) mg/dL Random Glucose (60-115) mg/dL Calcium (8.4-10.2) mg/dL C-Reactive Protein (< or = 0.50) mg/dL 05/24/24 05/24/24 05/24/24 Range/Units 07:13 08:18 08:20 ESR 88 H (0-15) MM/HR PT 20.2 H (11.1-13.3) SEC INR 1.7 H (0.9-1.1) BUN 32 H (9-16) mg/dL Creatinine 1.58 H (0.5-1.4) mg/dL POC Glucose 138 H (60-115) mg/dL Random Glucose 154 H (60-115) mg/dL Calcium 10.3 H (8.4-10.2) mg/dL C-Reactive Protein (< or = 0.50) mg/dL 05/24/24 05/24/24 Range/Units 08:27 11:16 ESR (0-15) MM/HR PT (11.1-13.3) SEC INR (0.9-1.1) BUN (9-16) mg/dL Creatinine (0.5-1.4) mg/dL POC Glucose 168 H (60-115) mg/dL Random Glucose (60-115) mg/dL Calcium (8.4-10.2) mg/dL C-Reactive Protein 2.68 H (< or = 0.50) mg/dL BMP 05/24/24 08:18 Sodium 137 Potassium 4.1 Chloride 104 Carbon Dioxide 23 BUN 32 H Creatinine 1.58 H Calcium 10.3 H All other labs normal. Assessment and Plan (1) Lymphedema: Status: Acute Plan In short patient has significantly swollen leg along with Charcot foot. I do think we would be able to assist him as an outpatient. He did report that he does have an element of venous insufficiency and has been tested and was known to have reflux in the past. We would be happy to follow-up on this and check his venous status. In addition he may be a good candidate for lymphedema pumps as he has seen a lymphedema clinic in the past. Finally we will be able to coordinate possible prosthetic or bracing to better assist his ambulation. We were able to discuss this with the patient and he was in agreement. Happy to see him as an outpatient. Thank you for allowing us to assist in his care. Procedures Date of Service Date of Service: 05/24/24
[2024-05-24] MEDS: Insulin Lispro 100 UNIT/ML 3 ML VIAL SUBCUT (11:38)
--- NOTE | 2024-05-24 14:10 | MHC.CM.PN ---
PT MEDICALLY CLEARED FOR [facility] HOME SELF CARE, PT'S AT BEDSIDE FOR TRANSPORT
== END 2024-05-24 14:24 | disposition home or self-care (01) | DRG 603 ==
LOC: HO.ED 11:10 → HO.EDOVER 18:23 → HO.S3 19:23
PROVIDERS: Physician Assistant; Admitting Provider Internal Medicine; Emergency Provider Emergency Medicine Emergency Medical Services; PCP Internal Medicine Medical Oncology; Visit Provider Internal Medicine
DX: L03.115 Cellulitis of right lower limb (principal); N17.9 Acute kidney failure, unspecified; E11.610 Type 2 diabetes mellitus with diabetic neuropathic arthropathy; I25.10 Atherosclerotic heart disease of native coronary artery without angina pectoris; M21.071 Valgus deformity, not elsewhere classified, right ankle; Z95.2 Presence of prosthetic heart valve; N18.30 Chronic kidney disease, stage 3 unspecified; K21.9 Gastro-esophageal reflux disease without esophagitis; E11.22 Type 2 diabetes mellitus with diabetic chronic kidney disease; I89.0 Lymphedema, not elsewhere classified; E78.5 Hyperlipidemia, unspecified; I12.9 Hypertensive chronic kidney disease with stage 1 through stage 4 chronic kidney disease, or unspecified chronic kidney disease; E66.9 Obesity, unspecified; Z68.36 Body mass index [BMI] 36.0-36.9, adult; Z91.041 Radiographic dye allergy status; Z91.040 Latex allergy status; Z79.82 Long term (current) use of aspirin; Z79.84 Long term (current) use of oral hypoglycemic drugs; Z79.01 Long term (current) use of anticoagulants; Z79.899 Other long term (current) drug therapy
CPT/HCPCS: 36415; 73610; 73620; 80048; 80053; 82947; 83036; 83605; 83880; 85025; 85610; 85652; 85730; 86140; 87040; 97116; 97161; 97530; 99285; J2543

== ENCOUNTER → 2024-05-21 18:15 | Outpatient (BNV) | payer MEDICARE, OTHER, SELFPAY | PROVIDERS: Admitting Provider Internal Medicine; Emergency Provider Emergency Medicine Emergency Medical Services; PCP Internal Medicine Medical Oncology; Visit Provider Internal Medicine | DX: M14.60 Charcot's joint, unspecified site (principal); L03.90 Cellulitis, unspecified | CPT/HCPCS: 99223; 99232; 99239 ==

== ENCOUNTER → 2024-05-21 18:15 | Outpatient (BNV) | payer MEDICARE, OTHER, SELFPAY | PROVIDERS: Admitting Provider Internal Medicine; Emergency Provider Emergency Medicine Emergency Medical Services; PCP Internal Medicine Medical Oncology; Visit Provider Surgery Vascular Surgery | DX: I89.0 Lymphedema, not elsewhere classified (principal) | CPT/HCPCS: 99222 ==

== ENCOUNTER 2024-05-31 12:34 | Outpatient (AMB) | payer MEDICARE, OTHER, SELFPAY ==
--- NOTE | 2024-05-31 12:53 | A.OFFVIS_ITS ---
Intake Visit Reasons: 1 week hosp follow up Charcot foot Intake Note: Patient presents for 1 week hospital follow up. Patient uses walker to ambulate at home. He is putting most of his weight on his left leg when walking. Right foot is very painful. He is not taking any pain medication besides tylenol. Just started wearing a brace today as his foot was rolling when he walks He has reduced his sodium intake drastically. Allergies Iodinated Contrast Media [IV CONTRAST] Allergy (Unknown, Verified 05/31/24 12:54) SEVERE HTN,REDNESS latex [LATEX] Allergy (Unknown, Verified 05/31/24 12:54) RASH ivp dye Allergy (Unknown, Uncoded 05/21/24 10:30) Hypertension latex Allergy (Unknown, Uncoded 05/21/24 10:30) Rash HPI HPI 1 week hosp follow up Charcot foot: Details: Pleasant 73-year-old gentleman presents for follow-up regarding his right lower extremity. He has a longstanding history of swelling and Charcot foot. He does have a history of right lower extremity orthotic. It had gotten to the point where he was unable to wear this because it his leg was swollen. He had an increasing dose of Bumex. He does note a significant improvement in the swelling of his lower extremities since his hospitalization. It has been affecting there daily activities including just basic ambulation. It is noted more so in right leg. Patient denies any previous venous surgery or injections. Patient denies any history of DVT/ PE. Patient denies any history of phlebitis. Trial of compression includes - [id number]. Of late he has been unable to wear because the amount of swelling. They now present for vascular evaluation regarding their varicose veins. [facility] Medical History Hypertension Cataract (lens) fragments in eye following cataract surgery, bilateral Surgical absence of teeth History of cardioversion Peripheral edema Atrial fibrillation Stomach ulcer CVA (cerebral vascular accident) H/O coronary angiogram Squamous cell carcinoma, arm Basal cell carcinoma (BCC) Hepatitis B Peritonitis Melanoma Complete heart block Cardiac arrest Pacemaker Diabetes Surgical History H/O cardiac radiofrequency ablation S/P cardiac cath S/P triple vessel bypass Aortic valve replaced History of carpal tunnel surgery S/P appendectomy S/P tonsillectomy Social History Household Members: Spouse Housing: House Do you presently have visiting nurse or other home services: No Patient Tobacco Use Status: Never used Tobacco e-Cigarette/Vaping Use: Never Used Advance Directives Date on File: 08/23/20 service: Yes Review of Systems Const Reports as per HPI ENT Reports no additional complaints Card Denies chest pain, Denies chest pain at rest and Denies chest pain with activity Resp Denies chest congestion and Denies cough GI Reports no additional complaints Musc Details: pain over varicosities, aching of lower extremities, swelling, cramping, heaviness and tiredness, itching Denies abnormal gait Skin/Breast Reports pruritus and Denies wounds Neuro Reports no additional complaints and Denies abnormal gait Psych Denies no additional complaints Physical Exam Const General: cooperative, healthy appearing and comfortable Orientation/consciousness: oriented to person, oriented to place and oriented to time Neck Carotids: no bruits Chest Chest palpation & inspection: normal inspection of the chest and normal palpation of entire chest wall Resp Effort & Inspection: normal respiratory effort and able to speak in complete sentences Cardio Rate: regular rate Heart sounds: S1 normal heart sound present and S2 normal heart sound present Peripheral pulses: Peripheral pulses 2+ throughout GI Inspection: Yes normal to inspection Skin Other: +3 edema, CEAP Classification C4 - skin color changes Ep - Etiology Primary As - superficial veins P - reflux General skin exam: dry skin Neuro General: oriented to person, oriented to place and oriented to time Extrem Right lower extremity: full ROM, normal capillary refill and edema Left lower extremity: full ROM, normal capillary refill and edema Psych Mental Status: mental status grossly normal Assessment & Plan Assessment & Plan (1) Varicose veins of right lower extremity with inflammation: Code(s): I83.11 - Varicose veins of right lower extremity with inflammation Category: Medical Plan: In short patient has significant lower extremity swelling. At the current time would recommend conservative measures including compression elevation and exercise. Would also recommend diuretics as tolerated. I have taken the liberty of ordering venous insufficiency testing to rule that out. Should that prove to be negative would consider evaluation for lymphedema. Thank you for allowing us to assist in his care. If there are any questions or concerns please do not hesitate to contact us. Orders: Orders US venous duplex LE BI 1 Week I83.11 - Varicose veins of right lower extremity with inflammation Coding Level of Care Code Est Pt Level 4 (67919) Diagnoses Varicose veins of right lower extremity with inflammation I83.11
== END 2024-05-31 13:21 | disposition home or self-care (01) ==
PROVIDERS: PCP Internal Medicine Medical Oncology; Visit Provider Surgery Vascular Surgery
DX: I83.11 Varicose veins of right lower extremity with inflammation (principal)
CPT/HCPCS: 99214

== ENCOUNTER → 2024-05-31 12:34 | Outpatient (BNVA) | payer MEDICARE, OTHER, SELFPAY | PROVIDERS: PCP Internal Medicine Medical Oncology; Visit Provider Surgery Vascular Surgery | DX: I83.11 Varicose veins of right lower extremity with inflammation (principal) | CPT/HCPCS: 99212 ==

== ENCOUNTER 2024-06-07 10:07 | Outpatient (REF) | payer MEDICARE, OTHER, SELFPAY ==
--- NOTE | ~2024-06-07 | US_ITS ---
EXAMINATION: US LOWER EXTREMITY VENOUS (REFLUX EXAM), BILATERAL CLINICAL INDICATION: Varicose veins of right lower extremity with inflammation COMPARISON: None. TECHNIQUE: Color flow triplex imaging and compression Doppler was performed to evaluate both the deep and the superficial systems bilaterally. To evaluate the superficial system, the examination was performed in the upright position. Color-flow Doppler ultrasound and compression ultrasound were utilized. In addition, maneuvers were utilized to demonstrate reflux. FINDINGS: 1. DEEP VENOUS ULTRASOUND OF THE RIGHT LOWER EXTREMITY: Common Femoral Vein: Compressible, normal respiratory variation and augmented flow. Femoral Vein: Compressible, normal color flow and augmentation. Popliteal Vein: Compressible, normal augmentation. Deep Reflux: There is no evidence of reflux in the deep system in either the common femoral vein, superficial femoral or the popliteal vein. There is no evidence of a Rangel's cyst. 2. SUPERFICIAL ULTRASOUND WITH DOPPLER OF RIGHT LOWER EXTREMITY: GREAT SAPHENOUS VEIN: Saphenofemoral Junction: 0.6 cm; Reflux: 0 ms Proximal Thigh: 0.4 cm; Reflux: 0 ms Mid Thigh: Not visualized Above Knee: Not visualized At Knee: Not visualized Below Knee: 0.2 cm; Reflux: 0 ms Mid Calf: 0.5 cm; Reflux: 792 ms Ankle: 0.5 cm; Reflux: 0 ms DUPLICATED LATERAL GREAT SAPHENOUS VEIN: Saphenofemoral Junction: 0.3 cm; Reflux: 0 ms Mid Thigh: Not visualized SMALL SAPHENOUS VEIN: Saphenopopliteal Junction: 0.6 cm; Reflux: 816 ms Proximal: 0.5 cm; Reflux: 0 ms Distal: 0.4 cm; Reflux: 0 ms PERFORATORS: Location: Right GSV proximal calf Size: 0.3; Reflux: 0 ms Location: Right GSV mid calf Size: 0.5; Reflux: 0 ms VARICOSITIES: Location: Right SSV mid Size: 0.3; Reflux: 0 ms Location: Right SSV distal Size: 0.3; Reflux: 680 ms Location: Right GSV proximal calf Size: 0.4; Reflux: 0 ms Location: Right GSV mid calf Size: 0.3; Reflux: 0 ms Location: Right GSV distal calf Size: 0.4; Reflux: 0 ms 3. DEEP VENOUS ULTRASOUND OF THE LEFT LOWER EXTREMITY: Common Femoral Vein: Compressible, normal respiratory variation and augmented flow. Femoral Vein: Compressible, normal color flow and augmentation. Popliteal Vein: Compressible, normal augmentation. Deep Reflux: There is no evidence of reflux in the deep system in either the common femoral vein, superficial femoral or the popliteal vein. There is no evidence of a Rangel's cyst. 4. SUPERFICIAL ULTRASOUND WITH DOPPLER OF LEFT LOWER EXTREMITY: GREAT SAPHENOUS VEIN: Saphenofemoral Junction: 0.8 cm; Reflux: 0 ms Proximal Thigh: 0.7 cm; Reflux: 0 ms Mid Thigh: 0.4 cm; Reflux: 1700 ms Above Knee: 0.4 cm; Reflux: 2128 ms At Knee: 0.4 cm; Reflux: 1768 ms Below Knee: 0.4 cm; Reflux: 2244 ms Mid Calf: 0.3 cm; Reflux: 1060 ms Ankle: 0.4 cm; Reflux: 0 ms DUPLICATED LATERAL GREAT SAPHENOUS VEIN: Saphenofemoral Junction: 0.2 cm; Reflux: 0 ms Mid Thigh: 0.2 cm; Reflux: 0 ms SMALL SAPHENOUS VEIN: Saphenopopliteal Junction: 0.5 cm; Reflux: 0 ms Proximal: 0.2 cm; Reflux: 0 ms Distal: 0.3 cm; Reflux: 0 ms PERFORATORS: Location: Left GSV mid thigh Size: 0.5; Reflux: 2100 ms Location: Left GSV mid calf Size: 0.3; Reflux: 0 ms VARICOSITIES: Location: Left GSV distal thigh Size: 0.4; Reflux: 1968 ms Location: Left GSV proximal calf Size: 0.4; Reflux: 2932 ms Location: Left GSV distal calf Size: 0.3; Reflux: 0 ms US/US venous duplex LE BI IMPRESSION: 1. No evidence of deep venous thrombosis or reflux. 2. Segmental incompetence of the right great saphenous vein at the level of the mid calf with reflux measuring 792 ms. The right great saphenous vein is not visualized from the mid thigh to the knee and the remaining visualized right great saphenous vein above and below the mid calf is competent. 3. Segmental incompetence of the left great saphenous vein from the level of the mid thigh to the mid calf with reflux measuring up to 2244 ms. 4. 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 5. Multiple varicose veins in the bilateral lower extremities, some of which demonstrate reflux measuring up to 680 ms on the right and 2932 ms on the left. 6. Scattered perforators in the bilateral lower extremities, one of which demonstrates reflux in the left mid thigh measuring 2100 ms.
== END 2024-06-07 10:08 | disposition home or self-care (01) ==
LOC: HO.US 10:07
PROVIDERS: PCP Internal Medicine Medical Oncology; Visit Provider Surgery Vascular Surgery
DX: I83.11 Varicose veins of right lower extremity with inflammation (principal)
CPT/HCPCS: 93970

== ENCOUNTER 2024-06-23 13:52 | Outpatient (REF) | payer MEDICARE, OTHER, SELFPAY ==
[2024-06-23 17:53] LABS: MANUAL DIFF FLAG NO
[2024-06-23 17:58] LABS: Basophils Absolute Auto 0.1 X10*3/uL (0.0-0.2); Basophils Percent Auto 0.7 % (0-2); Eosinophils Absolute Auto 0.1 X10*3/uL (0.0-0.4); Hematocrit 33.2 % (42.0-52.0); Hemoglobin 10.5 g/dl (14.0-18.0); Imm Gran Abs Auto 0.03 X10*3/uL (0.00-0.03); Imm Gran Pct Auto 0.4 % (0.0-0.4); Lymphocytes Absolute Auto 0.8 X10*3/uL (1.2-4.9); Lymphocytes Percent Auto 11.1 % (20-40); Mean Corpuscular HGB Conc 31.6 g/dl (31.0-36.0); Mean Corpuscular Hemoglobin 26.1 pg (27.0-33.0); Mean Corpuscular Volume 82.4 fL (80.0-98.0); Mean Platelet Volume 10.4 fL (9.4-12.4); Monocytes Absolute Auto 0.6 X10*3/uL (0.1-1.2); Monocytes Percent Auto 8.8 % (2-11); Neutrophils Absolute Auto 5.3 x10*3/uL (2.0-8.3); Platelet Count 403 X10*3/uL (160-400); Red Blood Count 4.03 X10*6/uL (4.60-5.80); White Blood Count 6.8 X10*3/uL (4.8-10.8)
[2024-06-23 18:17] LABS: Alanine Aminotransferase 19 U/L (0-40); Alkaline Phosphatase 96 U/L (39-117); Anion Gap 14 (12-20); Aspartate Amino Transferase 26 U/L (5-37); Bilirubin Total 0.4 mg/dL (0.0-1.0); Blood Urea Nitrogen 28 mg/dL (9-16); Calcium 10.1 mg/dL (8.4-10.2); Carbon Dioxide 26 mmol/L (22-29); Chloride 102 mmol/L (96-108); Estimated Glomerular Filt Rate 47; Glucose Random 93 mg/dL (60-115); Sodium 138 mmol/L (135-145); Total Protein 7.7 g/dL (6.5-8.0)
== END 2024-06-23 13:53 | disposition home or self-care (01) ==
LOC: HO.WFDLDS 13:52
PROVIDERS: Visit Provider Internal Medicine Medical Oncology
DX: E11.9 Type 2 diabetes mellitus without complications (principal); E66.9 Obesity, unspecified
CPT/HCPCS: 36415; 80053; 85025

== ENCOUNTER 2024-07-15 12:39 | Outpatient (AMB) | payer MEDICARE, OTHER, SELFPAY ==
--- NOTE | 2024-07-15 12:54 | MHC.OFFVIS ---
Vital Signs 07/15/24 12:56 BP 144/72 H Blood Pressure Location Rt brachial Position Sitting Intake Visit Reasons: follow up 06/07/24 Intake Note: Pt presents to the office today for a follow up [facility] 06/07/24. Pt states he has swelling in his leg and states it is mainly his right leg. Allergies Iodinated Contrast Media [IV CONTRAST] Allergy (Unknown, Verified 07/15/24 12:57) SEVERE HTN,REDNESS latex [LATEX] Allergy (Unknown, Verified 07/15/24 12:57) RASH ivp dye Allergy (Unknown, Uncoded 07/15/24 12:57) Hypertension latex Allergy (Unknown, Uncoded 07/15/24 12:57) Rash HPI HPI follow up [facility] 06/07/24: Details: Morbidly obese 73-year-old gentleman presents for follow-up regarding venous insufficiency. He actually presents with a non contact boot on the right lower extremity. Has a history of Charcot foot with long with significantly swollen lower extremities. He has actually seen foot and ankle orthopedic surgery and may potentially be undergoing a procedure with them. He now presents to us for follow-up after venous insufficiency testing. Of note his swelling has decreased as he continues to be on Bumex. Did provide a chart with significantly better controlled blood sugars. [facility] Medical History Hypertension Cataract (lens) fragments in eye following cataract surgery, bilateral Surgical absence of teeth History of cardioversion Peripheral edema Atrial fibrillation Stomach ulcer CVA (cerebral vascular accident) H/O coronary angiogram Squamous cell carcinoma, arm Basal cell carcinoma (BCC) Hepatitis B Peritonitis Melanoma Complete heart block Cardiac arrest Pacemaker Diabetes Surgical History H/O cardiac radiofrequency ablation S/P cardiac cath S/P triple vessel bypass Aortic valve replaced History of carpal tunnel surgery S/P appendectomy S/P tonsillectomy Social History Household Members: Spouse Housing: House Do you presently have visiting nurse or other home services: No Patient Tobacco Use Status: Never used Tobacco e-Cigarette/Vaping Use: Never Used Advance Directives Date on File: 08/23/20 service: Yes Review of Systems Const All systems reviewed & are unremarkable except as noted in HPI and below Reports no additional complaints ENT Reports Normal hearing present Card Denies chest pain, Denies chest pain at rest, Denies chest pain with activity and Denies pedal edema Resp Denies cough GI Denies abdominal pain Musc Denies abnormal gait, Denies muscle cramps and Denies radiating pain into limb Skin/Breast Denies skin ulcer and Denies wounds Neuro Reports Normal hearing present and Denies abnormal gait Psych Reports no additional complaints Physical Exam Vital Signs: Last Vital Signs BP 144/72 H 07/15/24 12:56 Const General: cooperative, healthy appearing and comfortable Orientation/consciousness: oriented to person, oriented to place and oriented to time HEENT Head: Yes normal to inspection Neck Neck: Yes normal visual inspection Carotids: no bruits Chest Chest palpation & inspection: normal inspection of the chest Resp Effort & Inspection: normal respiratory effort and able to speak in complete sentences Auscultation: clear to auscultation bilaterally, no crackles, no rales, no rhonchi and no wheezes Cardio Other: Bilateral palpable dorsalis pedis pulses Rate: regular rate Rhythm: regular rhythm Heart sounds: S1 normal heart sound present and S2 normal heart sound present Bruits: no carotid bruits Peripheral pulses: Peripheral pulses 2+ throughout GI Inspection: Yes normal to inspection Skin Wounds: no wounds Hair: normal Neuro General: oriented to person, oriented to place and oriented to time Cranial nerves: Yes CN's II-XII intact bilaterally and Yes Normal hearing present Cognition (Neuro): normal cognition Motor exam (neuro): 5/5 motor strength present throughout Extrem Other: venous exam: +1 edema General: No clubbing, No cyanosis and Yes edema Psych Appearance: grossly normal Mental Status: mental status grossly normal Speech and movement: Normal speech and movement present Results Reviewed Results Reviewed: Brief summary of venous insufficiency testing is as follows: right great saphenous vein: negative right small saphenous vein: negative right accessory vein: none present left great saphenous vein: Positive left small saphenous vein: negative left accessory vein: none present Please note there is no evidence of any venous aneurysms or significant tortuosity Assessment & Plan Assessment & Plan (1) Varicose veins of left lower extremity with inflammation: Code(s): I83.12 - Varicose veins of left lower extremity with inflammation Category: Medical Plan: In short patient has swelling of the legs. From a vascular standpoint he does have palpable pulses. I would recommend orthopedic intervention 1st. At the current time his right lower extremity is actually negative for any significant venous insufficiency. That leg is stable for orthopedic intervention he is refluxing leg was the left lower extremity. At the current time he would like to manage this conservatively. We did discuss routine conservative measures including compression elevation and exercise. In approximately 6 months time we can revisit the left lower extremity in terms of a venous ablation. Once again stable from my standpoint for orthopedic surgery. Thank you for allowing us to assist in his care. Coding Level of Care Code Est Pt Level 4 (24885) Diagnoses Varicose veins of left lower extremity with inflammation I83.12
[2024-07-15 12:56] VITALS: BP 144/72
== END 2024-07-15 13:18 | disposition home or self-care (01) ==
PROVIDERS: PCP Internal Medicine Medical Oncology; Visit Provider Surgery Vascular Surgery
DX: I83.12 Varicose veins of left lower extremity with inflammation (principal)
CPT/HCPCS: 99214

== ENCOUNTER → 2024-07-15 12:39 | Outpatient (BNVA) | payer MEDICARE, OTHER, SELFPAY | PROVIDERS: PCP Internal Medicine Medical Oncology; Visit Provider Surgery Vascular Surgery | DX: I83.12 Varicose veins of left lower extremity with inflammation (principal) | CPT/HCPCS: 99212 ==

== ENCOUNTER 2024-08-17 14:22 | Outpatient (REF) | payer MEDICARE, OTHER, SELFPAY ==
[2024-08-17 18:10] LABS: Appearance Urine Clear; Color Urine Yellow; Glucose Urine UA Negative (Negative); Leukocyte Esterase Urine Moderate (2+) (Negative); Nitrite Urine Negative (Negative); PH 5.5 (5.0-9.0); Specific Gravity - Urine 1.015 (1.005-1.025); UMIC TRIGGER UA YES; Urine Blood Large (3+) (Negative); Urine Ketones Negative (Negative); Urine Protein 100 (2+) mg/dL (Neg-Trace)
[2024-08-17 18:21] LABS: Bacteria Urine Trace (None Seen); Hyaline Casts Urine 0-2 /LPF (0-2); RBC Urine 0-2 /HPF (0-2); WBC Urine 21-50 /HPF (0-5)
== END 2024-08-17 14:23 | disposition home or self-care (01) ==
LOC: HO.WFDLDS 14:22
PROVIDERS: Visit Provider Internal Medicine Medical Oncology
DX: R39.9 Unspecified symptoms and signs involving the genitourinary system (principal); R82.79 Other abnormal findings on microbiological examination of urine
CPT/HCPCS: 81001; 87086; 87088; 87186

== ENCOUNTER 2024-09-01 16:49 | Outpatient (REF) | payer MEDICARE, OTHER, SELFPAY ==
[2024-09-02 13:17] LABS: Appearance Urine Clear; Color Urine Yellow; Glucose Urine UA Negative (Negative); Leukocyte Esterase Urine Large (3+) (Negative); Nitrite Urine Negative (Negative); PH 5.5 (5.0-9.0); UMIC TRIGGER UA YES; Urine Blood Negative (Negative); Urine Ketones Negative (Negative); Urine Protein Trace mg/dL (Neg-Trace)
[2024-09-02 14:21] LABS: Bacteria Urine None Seen (None Seen); Hyaline Casts Urine 0-2 /LPF (0-2); RBC Urine 0-2 /HPF (0-2); WBC Urine 21-50 /HPF (0-5)
== END 2024-09-01 16:50 | disposition home or self-care (01) ==
LOC: HO.LNP 16:49
PROVIDERS: Visit Provider Internal Medicine Medical Oncology
DX: N39.0 Urinary tract infection, site not specified (principal); R60.0 Localized edema
CPT/HCPCS: 81001; 87086; 87088; 87186

== ENCOUNTER 2024-09-16 14:11 | Outpatient (REF) | payer MEDICARE, OTHER, SELFPAY | END 2024-09-16 14:12 | disposition home or self-care (01) | LOC: HO.HHCLNP 14:11 | PROVIDERS: Visit Provider Internal Medicine Medical Oncology | DX: N40.1 Benign prostatic hyperplasia with lower urinary tract symptoms (principal); N39.0 Urinary tract infection, site not specified | CPT/HCPCS: 87086; 87088; 87186 ==